=== PATIENT | female | born 1955 | race Caucasian/White ===

== ENCOUNTER → 2016-08-23 | Outpatient (CLI) | payer BC ==
[~2016-08-23] MED LIST: ACET-1325; ACYC400T PO; AMLO-110 PO; B-COTAB18 PO; BETH5TAB2 PO; CHOL1000 PO; CIPR0.3S OP; FLUR100T PO; LEVO75TA PO; MELA3TAB12 PO; MISC1TAB85 PO; MULT-506 PO; NORT50CA PO; NORT75CA2 PO; OMEG10007 PO; OMEP40CA PO; OMEP40CA41 PO; OYST500T47 PO; PANC1CAP PO; PRED1SUS3; PRED1SUS3 OPL; QUIN40TA18 PO; SENN-61 PO; TRAM-10 PO; TRAZ50TA35 PO; VENL75CA PO; VITACAP26 PO; ZOLP10TA6 PO
--- NOTE | 2016-08-25 08:21 | MAMMOGRAPHY REPORT ---
BILATERAL DIGITAL SCREENING MAMMOGRAM TOMOSYNTHESIS WITH CAD: 08/23/2016 CLINICAL HISTORY: Routine screening. Patient has no complaints. TECHNIQUE: Breast tomosynthesis in addition to standard 2D mammography was performed. Current study was also evaluated with a Computer Aided Detection (CAD) system. COMPARISON: Comparison is made to exams dated: 08/19/2015 mammogram, 08/14/2014 mammogram, 07/24/2013 jeanette mogram, 07/03/2012 mammogram, 06/29/2011 mammogram, and 06/25/2010 mammogram - [facility]. BREAST COMPOSITION: The tissue of both breasts is heterogeneously dense, which may obscure small mas ses. FINDINGS: No new suspicious mass, architectural distortion or cluster of microcalcifications is seen . There are stable postsurgical and post biopsy changes in the right breast. A gardenia-shaped metallic marker remains in place within the lower outer quadrant. There are benign-appearing rodlike calcific ations in the right breast. IMPRESSION: ACR BI-RADS CATEGORY 1: NEGATIVE There is no mammographic evidence of malignancy. A 1 year screening mammogram is recommended. The pa tient will receive written notification of the results. Approximately 10% of breast cancers are not detected with mammography. A negative mammographic report should not delay biopsy if a clinically suggestive mass is present. Sari Garcia M.D. ay/:08/24/2016 17:46:06 Zinc Skimmer: Yael VELASQUEZ)(Saray), [facility] letter sent: Normal 1/2 BI-RADS Code: ACR BI-RADS Category 1: Negative
== END | disposition home or self-care (01) ==
LOC: C.MAMM 16:01
PROVIDERS: ATTEND Family Medicine
DX: Z12.31 Encounter for screening mammogram for malignant neoplasm of breast (principal); Z85.3 Personal history of malignant neoplasm of breast; Z08 Encounter for follow-up examination after completed treatment for malignant neoplasm

== ENCOUNTER 2016-09-13 12:51 | Emergency (ER) | payer BC ==
[~2016-09-13] VITALS: Ht 154.9 cm; Wt 56.7 kg
[~2016-09-13 12:51] MED LIST changes: -BETH5TAB2 PO; -NORT50CA PO; -OMEP40CA41 PO; -TRAZ50TA35 PO
[2016-09-13 13:08] VITALS: TEMP 36.7; Ht 154.9 cm; Wt 56.7 kg
--- NOTE | 2016-09-13 14:29 | DIAGNOSTIC IMAGING REPORT ---
THORACIC SPINE CT CT DOSE: 739.58 mGycm HISTORY: Trauma. Pain. recent head injury thoracic back pain TECHNIQUE: Multiaxial CT images of the thoracic spine were performed and reformatted in the sagittal and coronal plane without the use of contrast. COMPARISON: None. FINDINGS: No fractures. No subluxation. Paraspinal soft tissues are unremarkable. Grade 1 anterolisthesis of C7 on T1 of the secondary to degenerative changes of posterior elements. Considerable degenerative intervertebral this change from T1 through T3 as well as a T8-T9. No evidence for an acute compression deformity. No evidence for bony compromise of the spinal canal or neural foramina.. IMPRESSION: Moderate degenerative change. No acute process. Electronically signed by: Santino Davis M.D. 09/13/2016 2:28 PM Dictated Date/Time: 09/13/2016 2:25 PM
--- NOTE | 2016-09-13 14:32 | DIAGNOSTIC IMAGING REPORT ---
CERVICAL SPINE CT CT DOSE: 381.16 mGycm HISTORY: Pain recent head injury; worsting neck pain and L arm weakness, Narath TECHNIQUE: Multiaxial CT images of the cervical spine were performed and reformatted in the sagittal and coronal plane without the use of contrast. COMPARISON: None. FINDINGS: Findings consistent with a fusion of the C5, C6, and C7 vertebral bodies. Grade 1/grade 2 anterolisthesis C7 on T1. Anterolisthesis is estimated approximately 3 mm. This is felt to be secondary to degenerative changes of posterior elements. No acute bony abnormality. No major compromise of the spinal canal. Moderate osteophytic narrowing of the neuroforamina bilaterally at C7-T1. IMPRESSION: Degenerative change. No acute bony abnormality. Moderate narrowing of the neuroforamina bilaterally at C7-T1 secondary to the patient's grade 1/grade 2 anterolisthesis of C7 on T1. Evidence for prior fusion of the C5, C6, and C7 vertebral bodies. Electronically signed by: Santino Davis M.D. 09/13/2016 2:31 PM Dictated Date/Time: 09/13/2016 2:28 PM
--- NOTE | 2016-09-13 14:42 | DIAGNOSTIC IMAGING REPORT ---
CT SCAN OF THE BRAIN WITHOUT IV CONTRAST CLINICAL HISTORY: Head injury. Lightheadedness. COMPARISON STUDY: No priors. TECHNIQUE: Unenhanced axial CT scan of the brain is performed from the vertex to the skull base. Automated dose control exposure was utilized. CT DOSE: 638.56 mGycm FINDINGS: Brain parenchyma: The brain parenchyma is normal in appearance. There is no hemorrhage, mass effect, or evidence of acute territorial ischemia by CT criteria. Bradley-white matter is preserved. No extra-axial fluid collection is seen. Ventricles, sulci, cisterns: Normal in configuration. Intracranial vasculature: There is mild atherosclerotic calcification of the cavernous carotid and vertebral arteries. Calvarium: There is no depressed calvarial fracture. Sinuses and mastoids: The visualized paranasal sinuses are clear. The mastoid air cells are well pneumatized. Orbits: The bony orbits are grossly intact. There are bilateral ocular lens implants. IMPRESSION: There is no hemorrhage, mass effect, or evidence of acute territorial ischemia by CT criteria. Electronically signed by: Wale Ramsey M.D. 09/13/2016 2:40 PM Dictated Date/Time: 09/13/2016 2:25 PM
[2016-09-13] MEDS ORDERED: NORT50CA PO (14:51)
[2016-09-13] MEDS ORDERED: OMEP40CA41 PO (14:53)
[2016-09-13] MEDS ORDERED: TRAZ50TA35 PO (14:58)
[2016-09-13] MEDS ORDERED: BETH5TAB2 PO (15:00)
[2016-09-13 15:58] VITALS: BP 132/85; PULSE 89; O2SAT 96
--- NOTE | 2016-09-14 10:22 | EMERGENCY ROOM VISIT NOTE ---
ED Visit Note First contact with patient: 13:23 Chief Complaint: I am dizzy, have blurry vision and is having neck and middle back pain. History of Present Illness: Ms. Samuel is a 61-year-old white female who ambulates into the ED accompanied by her with complaints of possible head injury and neck and thoracic back pain. Patient reports that she was on vacation in [place] on August 26. She reports she slipped and fell striking her left forehead on concrete. She reports she had a transient loss of consciousness lasting 3-5 seconds. She reports she did not seek medical attention at that time but 3 days later she was vacationing in [place] and was seen. She reports she had a CT of the head performed and it showed no acute intracranial abnormalities or skull fractures. Her facial diagnosis was a concussion. Subsequently she developed a hematoma contusion contusion on the forehead which is almost completely resolved. Patient reports 3 days ago she was walking in her kitchen and struck her left frontal area on a kitchen cabinet. She did not have a loss of consciousness distal time but had severe pain. Since that time she continues to have pain in the left frontal area but has developed an ongoing headache. She describes her headache as a global throbbing sensation. She rates her discomfort 3/10. Her pain is nonradiating. She has not identified any aggravating or alleviating factors related to the pain. She has not taken any medications for pain prior to arrival at the hospital. Associated with her pain she reports she is having a lightheadedness sensation and feels she needs to hold on the bell to maintain her balance while ambulating, she reports when she turns her head and changes her direction of vision she feels like her vision is delayed and eventually catches up to the position of her head, she is experiencing neck pain and thoracic back pain. Historically patient reports she has severe degenerative disc disease in her cervical spine and has had multiple surgeries. She places the majority of her discomfort over the C5 to T1 area. The pain is nonradiating. The pain worsens with all movement of the cervical spine. She does not rates this discomfort. Associated with this discomfort she reports she is having paresthesias in the left upper extremity. Lastly she also reports she is having mid thoracic pain in the area of T5 through T7. She reports this is mild but worsens with palpation. She denies any associated symptoms with this pain. Additionally she denies dizziness, hearing changes, difficulty speaking, difficulty swallowing, difficulty coordinating body movements, chest pain, shortness of breath, nausea, vomiting, lower extremity weakness/numbness/ tingling. Review of Systems: As noted above in history of present illness. All body systems were reviewed and found to be negative as noted above. Past Medical History: As noted above, hypertension, gastroparesis, osteoarthritis, gastric reflux, dyslipidemia, unspecified thyroid disease, breast cancer, depression and status post lumpectomy, carotid dissection, lumbar discectomy, unspecified foot surgery Current Medications: Medications Dose Route/Sig Max Daily Dose Days Date Category Bethanechol Chloride 5 Mg Tab 5 Mg PO TID 09/13/16 Reported Trazodone (Trazodone HCl) 50 Mg Tab 100 Mg PO HS PRN 09/13/16 Reported Prilosec (Omeprazole) 40 Mg Cap 40 Mg PO BID 09/13/16 Reported Pamelor (Nortriptyline HCl) 50 Mg Cap 50 Mg PO HS 09/13/16 Reported Glucosamine Chondroitin T (Quri Natural Products) 1 Tab Tab 1 Tab PO BID 09/12/15 Reported Calcium (Oyster Shell) 500 Mg Tab 500 Mg PO QPM 09/12/15 Reported Multivitamin (Multivitamins) Tab 1 Tab PO HS 09/12/15 Reported Melatonin (Melatonin-Pyridoxine) 1 Tab Tab 10 Mg PO HS 09/12/15 Reported Pancreatin Quadruple Stre (Pancreatin) 500 Mg Cap 500 Mg PO BID 09/12/15 Reported Ronald-3 (Fish Oil) 1 Ea Cap 1 Cap PO QAM 09/12/15 Reported Vitamin D3 (Cholecalciferol) 1,000 Unit Tab 1,000 Units PO QAM 09/12/15 Reported Vitamin C (Vitamins C & E) 1 Cap Cap 500 Mg PO QPM 09/12/15 Reported Vitamin B Complex (B-Complex Vitamins) 1 Tab Tab 1 Tab PO QAM 09/12/15 Reported Senokot (Senna) 8.6 Mg Tab 1-2 Tabs PO HS 09/12/15 Reported Ansaid (Flurbiprofen) 100 Mg Tab 100 Mg PO BID PRN 09/12/15 Reported Zolpidem Tartrate 10 Mg Tab 1 Tab PO HS PRN 30 09/12/15 Reported Ultram (Tramadol HCl) 50 Mg Tab 1-2 Tab PO DAILY PRN 30 09/12/15 Reported Acyclovir 400 Mg Tab 400 Mg PO BID 09/12/15 Reported Effexor Xr (Venlafaxine Hcl) 75 Mg Cap 300 Mg PO QAM 09/12/15 Reported Accupril (Quinapril HCl) 40 Mg Tab 40 Mg PO QAM 09/12/15 Reported Synthroid (Levothyroxine Sodium) 75 Mcg Tab 75 Mcg PO QAM 09/12/15 Reported Norvasc (Amlodipine Besylate) 5 Mg Tab 5 Mg PO QAM 09/12/15 Reported Allergies to Medications: Atenolol, codeine, penicillin and metoclopramide. Social History: Patient is not employed; she lives with her and feels safe in her home environment; she denies tobacco use. Physical Examination: Vital Signs: Date Time Temp Pulse Resp B/P (MAP) Pulse Ox O2 Delivery O2 Flow Rate FiO2 09/13/16 15:58 89 18 132/85 96 09/13/16 14:53 85 18 132/77 95 Room Air 09/13/16 13:08 36.7 93 18 150/86 100 Room Air GENERAL: 61-year-old female in mild distress due to pain, nontoxic-appearing, afebrile and hemodynamically stable. NEUROLOGICAL: Awake, alert and oriented to person, place and time. Answering questions appropriately and following commands. Normal gait. Good hand eye coordination. Romberg test negative. Pronator drift test negative. Cranial nerves II through XII grossly intact. Short-term and long-term recall. Normal rapid owning movements of the hands and fingers. Normal heel coordination test. Able to spell backwards. SKIN: Warm, dry and pink. Face: Contusion over the left frontal area and left zygomatic area. HEENT: Atraumatic and normocephalic. Skull: No bony deformity, depressions, tenderness or crepitus. No raccoon's eyes or vallejo signs. No drainage from the ears or the nostril; no hemotympanum. Face: Soft tissue injuries as noted above. There is no bony deformity, bony crepitus under these areas. PERRLA. EOMI without nystagmus. Funduscopic examination is unremarkable with a normal- appearing optic disc but no signs of increased intracranial pressure. Sclera white and conjunctiva pink. No malocclusion. Airway patent. No intraoral trauma. Speech normal. Trachea midline. No jugular venous distention. BACK: Moderate tenderness over the C5-C6 and T1 area predominantly on the left over the transverse processes. I do not appreciate any bony deformity or crepitus. She does have full range of motion of the cervical spine. Additionally there is tenderness over the T5-T6 area over the spinous processes. There is no bony deformity, crepitus, step-offs, swelling or ecchymosis. She does have full range of motion of the cervical spine. No tenderness throughout the lumbar spine. No tenderness to any of the paraspinous musculature structures of the spine. No CVA tenderness. THORAX: Lungs sounds are clear to auscultation and equal bilaterally with symmetrical chest wall. No wheezing, rales or rhonchi. No crepitus, tenderness , subcutaneous air or deformities noted. ABDOMEN: Flat, soft and nontender. Positive bowel sounds in all quadrants. No guarding, rigidity or organomegaly. UPPER EXTREMITIES: No gross bony deformity. No tenderness over the joints. Full range of motion of the shoulder, elbow, forearm or wrist. There is a slight decrease in strength with testing of the left elbow and forearm. Head Rose Grower strength is equal bilaterally. Finger strength is equal bilaterally. 2+ bicipital, tricipital and brachial radialis deep tendon reflexes intact and equal bilaterally. Throughout the hands and fingers the skin was warm and pink and capillary refill is brisk. She is able to distinguish light sensations through all dermatomes of the lower arm, hand and fingers. ED Course: Patient is assessed as noted above. Patient's medication list was reviewed. Cervical Spine CT: Was reviewed by myself and read by the radiologist showing degenerative changes but no acute bony abnormalities. Moderate narrowing of the neural foramina bilaterally at C7-T1 secondary to grade 1/grade 2 anterolisthesis of C7 on T1. Prior evidence of fusion of C5-C6 and C7 vertebral bodies. Head CT: Was reviewed by myself and read by the radiologist showing no hemorrhage, mass effect, acute ischemia or skull fractures. Thoracic Spine CT: Was reviewed by myself and read by the radiologist and showing moderate degenerative changes but no acute fractures or subluxations. Patient was offered pain medications and refused. Patient was educated about today's findings and instructed on her treatment plan ; she verbalizes understanding and agreement with this plan. Clinical Impression: Closed head injury. Possible concussive syndrome. Cervical and thoracic back pain. Status post fall. Decision-Making: Initially my differential diagnosis I considered skull fracture , delayed intracranial bleed, concussive syndrome, cervical spine fracture, subluxation or muscle spasm, thoracic spine fracture, subluxation or muscle spasm and other causes. Disposition: Patient discharged home in stable condition accompanied by her ; prior to departure she was reassessed and subjectively reported she was feeling slightly better and had a decrease in her headache. Plan: Patient was encouraged to continue her current medications as prescribed. Patient was encouraged to alternate ibuprofen or acetaminophen every 3 hours as needed for pain. Patient was educated on Walker use and encouraged to use this for stability until return of normal stability. Patient was given the contact information for the local concussion clinic for follow-up care and treatment. Patient was encouraged to follow-up with her back specialist concerning her cervical and thoracic back pain. Patient was encouraged return the ED for worsening instability, headaches, vomiting, worsening paresthesias of her left upper extremity or any new/ concerning symptoms.
== END 2016-09-13 16:00 | disposition home or self-care (01) ==
LOC: C.EDB 12:53 → C.EDD 16:00
DX: S09.90XA Unspecified injury of head, initial encounter (principal); W18.30XA Fall on same level, unspecified, initial encounter; M54.2 Cervicalgia; M54.6 Pain in thoracic spine; M50.30 Other cervical disc degeneration, unspecified cervical region; I10 Essential (primary) hypertension; K31.84 Gastroparesis; M19.90 Unspecified osteoarthritis, unspecified site; K21.9 Gastro-esophageal reflux disease without esophagitis; E78.5 Hyperlipidemia, unspecified; F32.9 Major depressive disorder, single episode, unspecified; Z85.3 Personal history of malignant neoplasm of breast

== ENCOUNTER → 2017-06-10 | Outpatient (CLI) | payer OTHER ==
[~2017-06-10] MED LIST changes: -ACET-1325; +BETH5TAB2 PO; -CIPR0.3S OP; +NORT50CA PO; -NORT75CA2 PO; -OMEP40CA PO; +OMEP40CA41 PO; +OPTIRAY 320 IV PRN; -PRED1SUS3; -PRED1SUS3 OPL; +TRAZ50TA35 PO
--- NOTE | 2017-06-10 17:27 | DIAGNOSTIC IMAGING REPORT ---
ABD/PELVIS IV AND ORAL CONT CLINICAL HISTORY: 62 years-old Female presenting with ABD Cramping, bloody STOOL. TECHNIQUE: Multidetector CT of the abdomen and pelvis was performed after the administration of oral and intravenous contrast. IV contrast: 93 mL of Optiray 320. A dose lowering technique was used consistent with the principles of ALARA (as low as reasonably achievable). COMPARISON: 09/27/2007. CT DOSE (mGy.cm): The estimated cumulative dose is 237.82 mGy.cm. FINDINGS: Fitting Supervisor topogram: Unremarkable. Lung bases: Minimal basilar opacities, likely atelectasis. Normal heart size. No pericardial or pleural effusion. Liver: Normal morphology. No liver lesion. Patent hepatic vasculature. Biliary: No intrahepatic or extrahepatic biliary ductal dilatation. Normal gallbladder. Pancreas: Normal. Spleen: Normal. Adrenal glands: Normal. Kidneys and ureters: Few tiny hypodensities in the right kidney, indeterminate but likely cysts. No nephrolithiasis. No hydronephrosis. Bladder: Normal. Pelvic organs: Uterus and ovaries normal. Bowel: Moderate stool burden in the colon to the level of the descending colon. No bowel obstruction. Apparent wall thickening of the stomach likely due to underdistention. The appendix is not definitively visualized. However, no inflammatory changes in the region of the cecum, which is superiorly directed. Peritoneal cavity: No free fluid or intraperitoneal gas. Lymph nodes: No enlarged lymph nodes in the abdomen or pelvis. Vasculature: Atherosclerosis of the normal caliber abdominal aorta. IVC patent. Abdominal wall: Normal. Musculoskeletal: Degenerative changes of the spine. Old posterior right rib fracture. IMPRESSION: 1. Moderate stool burden in the colon consistent with constipation. No bowel obstruction. 2. No other evidence of acute intra-abdominal pathology. No CT evidence of gastrointestinal hemorrhage, though this diagnosis is limited by the presence of positive oral contrast. Electronically signed by: Renan Cassidy M.D. 06/10/2017 5:26 PM Dictated Date/Time: 06/10/2017 5:19 PM
== END | disposition home or self-care (01) ==
LOC: C.CTS 14:54
PROVIDERS: ATTEND Nurse Practitioner
DX: R10.84 Generalized abdominal pain (principal); K92.1 Melena

== ENCOUNTER 2021-10-13 15:15 | Inpatient (IN) ==
--- NOTE | 2021-10-13 15:37 | ED Triage Note ---
Date of Service October 13, 2021 History of Present Illness This patient was briefly evaluated while in triage. An abbreviated physical exam was performed. This patient is a 66-year-old that presents to the emergency department over concerns for "Sepsis". She notes nausea, L abd pain, Fever, muscle weakness, pain, lack of mental acuity. This started on this past tuesday evening. Has rectal pouch. Physical Exam GENERAL: 66 year old female. In no acute distress. SKIN: No lesions or rashes. HEART: Regular rate and rhythm. LUNGS: Clear to auscultation. ABDOMEN: Bowel sounds normoactive. No guarding or rigidity. No tenderness of palpation. NEURO: Alert and oriented. No deficits. MUSCULOSKELETAL: No deformities to inspection of the extremities. PSYCH: Patient is pleasant and answers all questions appropriately. Initial orders for labs and / or imaging were placed and patient was placed in the waiting area until a bed is available. Please see further documentation for the full ED course.
[2021-10-13 16:44] LABS: Albumin Globulin Ratio 1.5 (0.9-2); Albumin Level 3.9 gm/dl (3.4-5.0); BUN Creatinine Ratio 10.6 (10-20); Bilirubin,Total 0.3 mg/dl (0.2-1.0); Calcium 9.1 mg/dl (8.5-10.1); Est GFR (African American) 20.7 ml/min; Est GFR (Non-African American) 17.9 ml/min; Globulin 2.6 gm/dl (2.5-4.0); Magnesium 2.5 mg/dl (1.7-2.4); Potassium 3.8 mmol/L (3.5-5.1); Total Protein 6.5 gm/dl (6.0-8.3)
--- NOTE | 2021-10-13 16:47 | XRay Report ---
SINGLE VIEW CHEST CLINICAL HISTORY: Infection FINDINGS: An AP, portable, upright chest radiograph is compared to study dated 02/26/2019. The cardio mediastinal silhouette is unremarkable. The lungs and pleural spaces are clear. No pneumothorax is se en. The skeletal structures are osteopenic. There are healed right-sided rib fractures. Fusion hardwa re is noted the cervicothoracic junction. IMPRESSION: No active disease in the chest. ACT 112: Negative or not required by law. Electronically signed by: Wale Ramsey M.D. 10/13/2021 4:46 PM
[2021-10-13] MEDS ORDERED: KETOROLAC TROMETHAMINE 15 MG/ML VIAL IV ONE (16:51)
[2021-10-13] MEDS ORDERED: MoRPHine SULFATE 2 MG/ML CARP IV STA (16:51)
[2021-10-13] MEDS ORDERED: SODIUM CHLORIDE 0.9% 1000ML 1,000 ML IV ONE (16:51)
[2021-10-13] MEDS ORDERED: ONDANSETRON INJ 2 MG/ML 2 ML VIAL IV STA (16:51)
[2021-10-13] MEDS ORDERED: CEFEPIME 2,000 MG/20 ML VIAL IV STA (16:54)
[2021-10-13 17:02] LABS: Hematocrit (blood only) 39.7 % (34.1-44.9); Hemoglobin 13.6 g/dl (12.0-16.0); Mean Corpuscular Hemoglobin 31.1 pg (25.0-34.0); Mean Corpuscular Hgb Conc 34.3 g/dL (32.0-36.0); Mean Corpuscular Volume 90.6 fL (80.0-100.0); Mean Platelet Volume 10.8 fL (9.4-12.3); Platelet Count 137 K/uL (130-400); RDW Standard Deviation 39.9 fL (36.4-46.3); Red Blood Count 4.38 M/uL (3.93-5.22); White Blood Count 3.98 K/ul (4.8-10.8)
[2021-10-13 17:03] LABS: Basophils # (auto) 0.04 K/uL (0-0.2); Immature Granulocytes # (auto) 0.01 K/uL (0.00-0.02); Immature Granulocytes % (auto) 0.3 %; Lymphocytes # (auto) 0.34 K/uL (1.2-3.4); Lymphocytes % (auto) 8.5 %; Monocytes # (auto) 0.22 K/uL (0.24-0.82); Monocytes % (auto) 5.5 %; Neutrophils # (auto) 3.37 K/uL (1.4-6.5); Neutrophils % (auto) 84.7 %; RBC Morphology Unremarkable
--- NOTE | 2021-10-13 17:03 | Emergency Department Note ---
Impression & Plan Hypotension, MARLA (acute kidney injury), Flu-like symptoms, Acute hyponatremia ED Provider Note NAME: RON CANADA AGE: 66 SEX: F : 1955 ARRIVES VIA: Walk-In INFORMANT: [Patient] ED PROVIDER(S): [Wale Odonnell MD] CHIEF COMPLAINT: Fever, confusion HISTORY OF PRESENT ILLNESS: The patient is a 66-year-old female who presents to the ED with 3 days of fatigue, fever, body aches, nausea, weakness and some confusion/fogginess when thinking. The patient states that she has had some left-sided abdominal pain that has been about a 5 on a scale of 1-10. There has been no sore throat or cough. She tested twice negative for COVID-19. The patient spoke with her doctors office, she was referred for the possibility of sepsis. REVIEW OF SYSTEMS: See HPI for pertinent positives and negatives. A total of ten systems were reviewed and were otherwise negative. PMHx/PSHx: See Below SOCIAL HISTORY: See Below. PHYSICAL EXAM: GENERAL: Patient is in no acute distress. HEENT: No acute trauma, normocephalic atraumatic, mucous membranes moist, no nasal congestion, no scleral icterus. NECK: No stridor, no adenopathy, no meningismus, trachea is midline. LUNGS: Clear to auscultation bilaterally, no wheeze, no rhonchi, breath sounds equal. HEART: Without murmurs gallops or rubs, regular rate and rhythm. ABDOMEN: Soft, moderately tender in the right upper quadrant, no peritonitis. Bowel sounds are hyperactive. EXTREMITIES: No cyanosis or edema, full range of motion of all the joints without pain or difficulty, no signs for acute trauma. NEUROLOGIC: Oriented x 3, no acute motor or sensory deficits, no focal weakness. SKIN: No rash, no jaundice, no diaphoresis. DIFFERENTIAL DIAGNOSIS: Sepsis, UTI, dehydration, diverticulitis or colitis, COVID-19, pneumonia, metabolic abnormality, electrolyte abnormalities, cardiac sources, cellulitis, bacteremia, intracerebral event, toxicologic etiology, neurologic event, as well as other pathologies. EMERGENCY DEPARTMENT COURSE/PROCEDURES: Critical Care Note: I have personally spent 51 minutes of critical care time in the direct management of this patient. This includes bedside care, interpretation of diagnostic studies, and testing, discussion with consultants, patient, and family members, and other required patient management activities. This 51 minutes is in excess of all separately billable procedures. MEDICAL DECISION MAKING: There is no leukocytosis, in fact, the white count is somewhat low. There is no anemia. There is a normal platelet count. Sodium was low at 128. There was some acute kidney injury with a creatinine of 2.64. Lactic acid level was elevated consistent with dehydration and/or sepsis. There were some subtle liver enzyme elevations, the bilirubin though was normal. Procalcitonin level was elevated consistent with potential bacterial infection. Urinalysis showed some dehydration, there was no obvious infection. Stool bio fire testing was completely negative. Anaplasmosis and Babesia smears were negative. Lyme disease testing was negative. COVID test returned negative. Chest x-ray did not show pneumonia or CHF. Abdominal and pelvis CT showed some potential gastroenteritis, no diverticulitis, no free air. On exam, the patient was somewhat hypotensive. She was not febrile. Patient received IV saline, 2 L. She was given IV Zofran for nausea, she received IV Toradol for pain. She was given IV cefepime as empiric antibiotic coverage. The patient's blood pressure has improved. She is currently resting comfortably. I do think she requires a hospital stay for further work-up. She presents with infectious symptomatology, currently, no source for infection has been identified. I spoke with the patient and case management. The on-call hospitalist was consulted. Past Med/Surg History Medical History Carpal tunnel syndrome Degenerative disc disease Depression Eustachian tube dysfunction Gastroparesis GERD (gastroesophageal reflux disease) HX: breast cancer RIGHT > 2007 > NO CHEMO Hypertension Hypothyroidism Migraine HX Peptic ulcer disease HX Weight loss OVER THE LAST FEW YRS - [facility]LO[facility]) NO FINDINGS Surgical History History of bilateral tubal ligation History of bunionectomy right History of colonoscopy History of discectomy LUMBAR FUSION History of esophagogastroduodenoscopy (EGD) History of neck surgery X 2 History of tonsillectomy Hx of foot surgery LEFT TO TOE Hx of lumpectomy R BREAST Hx of neck surgery CAN'T LEAN HEAD BACK VERY FAR. > (HASNT HAD TROUBLE WITH ANESTHESIA THOUGH) Family History Grandmother (Maternal) Diabetes Father Cancer Family hx of colon cancer Social History Smoking Status: Never smoker Cigarettes Per Day: 10 YR AGO; Second Hand Exposure: Yes ( A CHILD); Hx Alcohol Use: Yes Alcohol type: wine Hx Substance Use: Yes Substance Use Type Other:: INH HS Preferred Language: Japanese Communication Ability: Effective Heater Room Helper Required: No Beliefs That Will Affect Care: None Current Living Situation: Spouse current occupational status: retired Feels Safe at Home: Yes Assistive Devices: Contacts Allergies Allergies Allergy/AdvReac Type Severity Reaction Status Date / Time atenolol Allergy Intermediate RESTLESS Verified 10/13/21 18:09 nickel Allergy Intermediate MUST WEAR Verified 10/13/21 18:09 GOLD OR SILVER ONLY-RASH Penicillins Allergy Unknown A Verified 10/13/21 18:09 CHILD-UNKNOWN codeine AdvReac Intermediate "DEPRESSED Verified 10/13/21 18:09 CENTRAL NERVOUS SYSTEM" metoclopramide AdvReac Intermediate AGITATED Verified 10/13/21 18:09 Home Meds Home Medications Medication Instructions Recorded Confirmed Medical Marijuana 1 dose inhalation HS 03/09/19 10/13/21 acyclovir 400 mg tablet 400 mg PO BID 03/09/19 10/13/21 amlodipine 10 mg tablet 10 mg PO PM 03/09/19 10/13/21 ascorbic acid (vitamin C) 500 mg 500 mg PO HS 03/09/19 10/13/21 tablet (Vitamin C) biotin 10,000 mcg capsule 10,000 mcg PO QAM 03/09/19 10/13/21 cholecalciferol (vitamin D3) 25 1,000 unit PO QAM 03/09/19 10/13/21 mcg (1,000 unit) chewable tablet (Vitamin D3) flurbiprofen 100 mg tablet 100 mg PO BID 03/09/19 10/13/21 glucosamine sulf dipot 1 cap PO BID 03/09/19 10/13/21 chlr,msm,chond 550 mg-C 30 mg-maciel 1 mg capsule (Glucosamine Chondroitin) levothyroxine 75 mcg tablet 75 mcg PO [id number] 03/09/19 10/13/21 (Synthroid) lisinopril 40 mg tablet 40 mg PO QPM 03/09/19 10/13/21 magnesium oxide 400 mg PO QAM 03/09/19 10/13/21 melatonin 5 mg tablet 5 mg PO HS 03/09/19 10/13/21 multivitamin 1 tab PO PM 03/09/19 10/13/21 nortriptyline 25 mg capsule 25 mg PO PM 03/09/19 10/13/21 potassium chloride 10 mEq 10 meq PO HS 03/09/19 10/13/21 capsule,extended release trazodone 100 mg tablet 100 mg PO HS 03/09/19 10/13/21 venlafaxine 75 mg tablet 300 mg PO QAM 03/09/19 09/02/21 vitamin B complex-folic acid 0.4 1 tab PO QAM 03/09/19 09/02/21 mg tablet (Super B Maxi Complex) Cranberry Extract Otc 2 tab PO BID 08/28/21 10/13/21 ferrous sulfate 325 mg (65 mg 325 mg PO QAM 08/28/21 10/13/21 iron) tablet linaclotide 290 mcg capsule 290 mcg PO QAM 08/28/21 10/13/21 (Linzess) lamotrigine 25 mg tablet 25 mg PO DAILY 10/13/21 10/13/21 Results & Data (ED) Vital Signs Vital Signs - 24 hr 10/13/21 15:34 10/13/21 16:33 10/13/21 17:00 Temperature 36.6 C Temperature Source Temporal Artery Scan Pulse Rate 100 H 68 Pulse Rate [Apical] 74 Pulse Rate from SpO2 Sensor Respiratory Rate 18 19 15 Respiratory Effort / Characteristics Non-Labored Spontaneous Non-Labored Spontaneous Respiratory Depth Normal Normal Blood Pressure 85/59 L 80/55 L Blood Pressure [Right Arm] 106/57 L Blood Pressure Mean 67 63 Blood Pressure Mean [Right Arm] 73 Blood Pressure Position [Right Arm] Pulse Oximetry 93 96 Oxygen Delivery Method Room Air Room Air Sepsis Recent Fever Within 48 Hours Yes Sepsis New/Unexplained Change in Mental Status No Sepsis Action Taken by Nursing No Action Required 10/13/21 17:10 10/13/21 17:20 10/13/21 17:30 Temperature Temperature Source Pulse Rate 63 71 73 Pulse Rate [Apical] Pulse Rate from SpO2 Sensor 65 69 70 Respiratory Rate 14 14 21 Respiratory Effort / Characteristics Respiratory Depth Blood Pressure 86/57 L 84/60 L 84/52 L Blood Pressure [Right Arm] Blood Pressure Mean 66 68 62 Blood Pressure Mean [Right Arm] Blood Pressure Position [Right Arm] Pulse Oximetry 97 96 79 L Oxygen Delivery Method Sepsis Recent Fever Within 48 Hours Sepsis New/Unexplained Change in Mental Status Sepsis Action Taken by Nursing 10/13/21 18:00 10/13/21 18:54 Temperature 37.4 C Temperature Source Temporal Artery Scan Pulse Rate 71 Pulse Rate [Apical] 76 Pulse Rate from SpO2 Sensor 71 Respiratory Rate 20 20 Respiratory Effort / Characteristics Respiratory Depth Blood Pressure 93/56 L Blood Pressure [Right Arm] 89/60 L Blood Pressure Mean 68 Blood Pressure Mean [Right Arm] 69 Blood Pressure Position [Right Arm] Sitting Pulse Oximetry 99 99 Oxygen Delivery Method Room Air Sepsis Recent Fever Within 48 Hours Sepsis New/Unexplained Change in Mental Status Sepsis Action Taken by Longterm Medications Current Medication List: was personally reviewed by me Laboratory Data Attestation: I reviewed the patient's lab results. Result diagrams: 10/13/21 16:05 10/13/21 16:05 Lab Results 10/13/21 10/13/21 10/13/21 Range/Units 16:05 16:05 16:05 WBC 3.98 L (4.8-10.8) K/ul RBC 4.38 (3.93-5.22) M/uL Hgb 13.6 (12.0-16.0) g/dl Hct 39.7 (34.1-44.9) % MCV 90.6 (80.0-100.0) fL MCH 31.1 (25.0-34.0) pg MCHC 34.3 (32.0-36.0) g/dL RDW Std Deviation 39.9 (36.4-46.3) fL RDW Coeff of Kush 12.0 (11.5-14.5) % Plt Count 137 (130-400) K/uL MPV 10.8 (9.4-12.3) fL Immature Gran % (Auto) 0.3 % Neut % (Auto) 84.7 % Lymph % (Auto) 8.5 % [place] % (Auto) 5.5 % Eos % (Auto) 0.0 % Baso % (Auto) 1.0 % Neut # (Auto) 3.37 (1.4-6.5) K/uL Lymph # (Auto) 0.34 L (1.2-3.4) K/uL [place] # (Auto) 0.22 L (0.24-0.82) K/uL Eos # (Auto) 0.00 (0-0.50) K/uL Baso # (Auto) 0.04 (0-0.2) K/uL Immature Gran # (Auto) 0.01 (0.00-0.02) K/uL RBC Morphology Unremarkable Sodium 128 L (136-145) mmol/L Potassium 3.8 (3.5-5.1) mmol/L Chloride 94 L (98-107) mmol/L Carbon Dioxide 25 (21-32) mmol/L Anion Gap 9 (3-11) BUN 28 H (6-23) mg/dl Creatinine 2.64 H (0.6-1.2) mg/dl Est Cr Clr Drug Dosing 15.0 ml/min Est GFR ( Amer) 20.7 ml/min Est GFR (Non-Af Amer) 17.9 ml/min BUN/Creatinine Ratio 10.6 (10-20) Glucose 136 H (70-99(Fasting)) mg/dl Osmolality (280-300) mOsm/kg Lactate 2.2 H* (0.4-2.0) mmol/L Calcium 9.1 (8.5-10.1) mg/dl Magnesium 2.5 H (1.7-2.4) mg/dl Total Bilirubin 0.3 (0.2-1.0) mg/dl AST 66 H (13-39) U/L ALT 54 H (7-52) U/L Alkaline Phosphatase 52 (34-104) U/L Total Protein 6.5 (6.0-8.3) gm/dl Albumin 3.9 (3.4-5.0) gm/dl Globulin 2.6 (2.5-4.0) gm/dl Albumin/Globulin Ratio 1.5 (0.9-2) Procalcitonin (0-0.5) ng/ml Urine Color Urine Appearance (Clear) Urine pH (4.5-7.5) Ur Specific What[place] (1.000-1.030) Urine Protein (Negative) Urine Glucose (UA) (Negative) Urine Ketones (Negative) Urine Blood (Negative) Urine Nitrite (Negative) Urine Bilirubin (Negative) Urine Urobilinogen (Negative) Ur Leukocyte Esterase (Negative) Urine WBC (Auto) (0-5) /hpf Urine RBC (Auto) (0-4) /hpf U Hyaline Cast (Auto) (0-5) /lpf U Epithel Cells (Auto) (0-5) /lpf Urine Bacteria (Auto) (Negative) Ur Renal Epithelial Cell Calcium Oxalate Crystal (None Prsent) Urine Mucus (None Prsent) Urine Osmolality (500-800) mOsm/kg Ur Random Sodium mmol/L Anaplasma Smear Babesia Smear Lyme Disease IgG Ab (Negative) Lyme Disease IgM Ab (Negative) SARS-CoV-2 (PCR) (Negative) 10/13/21 10/13/21 10/13/21 Range/Units 16:05 16:05 16:05 WBC (4.8-10.8) K/ul RBC (3.93-5.22) M/uL Hgb (12.0-16.0) g/dl Hct (34.1-44.9) % MCV (80.0-100.0) fL MCH (25.0-34.0) pg MCHC (32.0-36.0) g/dL RDW Std Deviation (36.4-46.3) fL RDW Coeff of Kush (11.5-14.5) % Plt Count (130-400) K/uL MPV (9.4-12.3) fL Immature Gran % (Auto) % Neut % (Auto) % Lymph % (Auto) % [place] % (Auto) % Eos % (Auto) % Baso % (Auto) % Neut # (Auto) (1.4-6.5) K/uL Lymph # (Auto) (1.2-3.4) K/uL [place] # (Auto) (0.24-0.82) K/uL Eos # (Auto) (0-0.50) K/uL Baso # (Auto) (0-0.2) K/uL Immature Gran # (Auto) (0.00-0.02) K/uL RBC Morphology Sodium (136-145) mmol/L Potassium (3.5-5.1) mmol/L Chloride (98-107) mmol/L Carbon Dioxide (21-32) mmol/L Anion Gap (3-11) BUN (6-23) mg/dl Creatinine (0.6-1.2) mg/dl Est Cr Clr Drug Dosing ml/min Est GFR ( Amer) ml/min Est GFR (Non-Af Amer) ml/min BUN/Creatinine Ratio (10-20) Glucose (70-99(Fasting)) mg/dl Osmolality (280-300) mOsm/kg Lactate (0.4-2.0) mmol/L Calcium (8.5-10.1) mg/dl Magnesium (1.7-2.4) mg/dl Total Bilirubin (0.2-1.0) mg/dl AST (13-39) U/L ALT (7-52) U/L Alkaline Phosphatase (34-104) U/L Total Protein (6.0-8.3) gm/dl Albumin (3.4-5.0) gm/dl Globulin (2.5-4.0) gm/dl Albumin/Globulin Ratio (0.9-2) Procalcitonin 7.46 H (0-0.5) ng/ml Urine Color Urine Appearance (Clear) Urine pH (4.5-7.5) Ur Specific What[place] (1.000-1.030) Urine Protein (Negative) Urine Glucose (UA) (Negative) Urine Ketones (Negative) Urine Blood (Negative) Urine Nitrite (Negative) Urine Bilirubin (Negative) Urine Urobilinogen (Negative) Ur Leukocyte Esterase (Negative) Urine WBC (Auto) (0-5) /hpf Urine RBC (Auto) (0-4) /hpf U Hyaline Cast (Auto) (0-5) /lpf U Epithel Cells (Auto) (0-5) /lpf Urine Bacteria (Auto) (Negative) Ur Renal Epithelial Cell Calcium Oxalate Crystal (None Prsent) Urine Mucus (None Prsent) Urine Osmolality (500-800) mOsm/kg Ur Random Sodium mmol/L Anaplasma Smear Babesia Smear Lyme Disease IgG Ab Negative (Negative) Lyme Disease IgM Ab Negative (Negative) SARS-CoV-2 (PCR) NEGATIVE (Negative) 10/13/21 10/13/21 10/13/21 Range/Units 16:05 16:05 17:52 WBC (4.8-10.8) K/ul RBC (3.93-5.22) M/uL Hgb (12.0-16.0) g/dl Hct (34.1-44.9) % MCV (80.0-100.0) fL MCH (25.0-34.0) pg MCHC (32.0-36.0) g/dL RDW Std Deviation (36.4-46.3) fL RDW Coeff of Kush (11.5-14.5) % Plt Count (130-400) K/uL MPV (9.4-12.3) fL Immature Gran % (Auto) % Neut % (Auto) % Lymph % (Auto) % [place] % (Auto) % Eos % (Auto) % Baso % (Auto) % Neut # (Auto) (1.4-6.5) K/uL Lymph # (Auto) (1.2-3.4) K/uL [place] # (Auto) (0.24-0.82) K/uL Eos # (Auto) (0-0.50) K/uL Baso # (Auto) (0-0.2) K/uL Immature Gran # (Auto) (0.00-0.02) K/uL RBC Morphology Sodium (136-145) mmol/L Potassium (3.5-5.1) mmol/L Chloride (98-107) mmol/L Carbon Dioxide (21-32) mmol/L Anion Gap (3-11) BUN (6-23) mg/dl Creatinine (0.6-1.2) mg/dl Est Cr Clr Drug Dosing ml/min Est GFR ( Amer) ml/min Est GFR (Non-Af Amer) ml/min BUN/Creatinine Ratio (10-20) Glucose (70-99(Fasting)) mg/dl Osmolality 277 L (280-300) mOsm/kg Lactate (0.4-2.0) mmol/L Calcium (8.5-10.1) mg/dl Magnesium (1.7-2.4) mg/dl Total Bilirubin (0.2-1.0) mg/dl AST (13-39) U/L ALT (7-52) U/L Alkaline Phosphatase (34-104) U/L Total Protein (6.0-8.3) gm/dl Albumin (3.4-5.0) gm/dl Globulin (2.5-4.0) gm/dl Albumin/Globulin Ratio (0.9-2) Procalcitonin (0-0.5) ng/ml Urine Color Dark Yellow Urine Appearance Cloudy A (Clear) Urine pH 5.0 (4.5-7.5) Ur Specific Whately 1.021 (1.000-1.030) Urine Protein 2+ H (Negative) Urine Glucose (UA) Negative (Negative) Urine Ketones Trace H (Negative) Urine Blood Negative (Negative) Urine Nitrite Negative (Negative) Urine Bilirubin Negative (Negative) Urine Urobilinogen Negative (Negative) Ur Leukocyte Esterase Negative (Negative) Urine WBC (Auto) 5-10 H (0-5) /hpf Urine RBC (Auto) 10-30 H (0-4) /hpf U Hyaline Cast (Auto) >30 H (0-5) /lpf U Epithel Cells (Auto) >30 H (0-5) /lpf Urine Bacteria (Auto) Negative (Negative) Ur Renal Epithelial Cell Not Reportable Calcium Oxalate Crystal Present A (None Prsent) Urine Mucus Present A (None Prsent) Urine Osmolality (500-800) mOsm/kg Ur Random Sodium mmol/L Anaplasma Smear See Comment Babesia Smear See Comment Lyme Disease IgG Ab (Negative) Lyme Disease IgM Ab (Negative) SARS-CoV-2 (PCR) (Negative) 10/13/21 10/13/21 10/13/21 Range/Units 17:52 17:52 19:06 WBC (4.8-10.8) K/ul RBC (3.93-5.22) M/uL Hgb (12.0-16.0) g/dl Hct (34.1-44.9) % MCV (80.0-100.0) fL MCH (25.0-34.0) pg MCHC (32.0-36.0) g/dL RDW Std Deviation (36.4-46.3) fL RDW Coeff of Kush (11.5-14.5) % Plt Count (130-400) K/uL MPV (9.4-12.3) fL Immature Gran % (Auto) % Neut % (Auto) % Lymph % (Auto) % [place] % (Auto) % Eos % (Auto) % Baso % (Auto) % Neut # (Auto) (1.4-6.5) K/uL Lymph # (Auto) (1.2-3.4) K/uL [place] # (Auto) (0.24-0.82) K/uL Eos # (Auto) (0-0.50) K/uL Baso # (Auto) (0-0.2) K/uL Immature Gran # (Auto) (0.00-0.02) K/uL RBC Morphology Sodium (136-145) mmol/L Potassium (3.5-5.1) mmol/L Chloride (98-107) mmol/L Carbon Dioxide (21-32) mmol/L Anion Gap (3-11) BUN (6-23) mg/dl Creatinine (0.6-1.2) mg/dl Est Cr Clr Drug Dosing ml/min Est GFR ( Amer) ml/min Est GFR (Non-Af Amer) ml/min BUN/Creatinine Ratio (10-20) Glucose (70-99(Fasting)) mg/dl Osmolality (280-300) mOsm/kg Lactate 0.5 (0.4-2.0) mmol/L Calcium (8.5-10.1) mg/dl Magnesium (1.7-2.4) mg/dl Total Bilirubin (0.2-1.0) mg/dl AST (13-39) U/L ALT (7-52) U/L Alkaline Phosphatase (34-104) U/L Total Protein (6.0-8.3) gm/dl Albumin (3.4-5.0) gm/dl Globulin (2.5-4.0) gm/dl Albumin/Globulin Ratio (0.9-2) Procalcitonin (0-0.5) ng/ml Urine Color Urine Appearance (Clear) Urine pH (4.5-7.5) Ur Specific [place] (1.000-1.030) Urine Protein (Negative) Urine Glucose (UA) (Negative) Urine Ketones (Negative) Urine Blood (Negative) Urine Nitrite (Negative) Urine Bilirubin (Negative) Urine Urobilinogen (Negative) Ur Leukocyte Esterase (Negative) Urine WBC (Auto) (0-5) /hpf Urine RBC (Auto) (0-4) /hpf U Hyaline Cast (Auto) (0-5) /lpf U Epithel Cells (Auto) (0-5) /lpf Urine Bacteria (Auto) (Negative) Ur Renal Epithelial Cell Calcium Oxalate Crystal (None Prsent) Urine Mucus (None Prsent) Urine Osmolality 290 L (500-800) mOsm/kg Ur Random Sodium 16 mmol/L Anaplasma Smear Babesia Smear Lyme Disease IgG Ab (Negative) Lyme Disease IgM Ab (Negative) SARS-CoV-2 (PCR) (Negative) Administered Medications Sodium Chloride (Nss 1000ml) 1,000 mls @ 80 mls/hr IV .[id number] ESTELA Stop: 10/14/21 09:44 Last Admin: 10/13/21 21:35 Dose: 80 mls/hr Documented By: AMRITA Morphine Sulfate (Morphine Sulfate 2 Mg/Ml Carp) 2 mg IV Q3H PRN PRN Reason: Pain (1,2,3,4,5) & Pre PT Stop: 10/27/21 22:41 Last Admin: 10/13/21 23:12 Dose: 2 mg Documented By: AMRITA Discontinued Medications Sodium Chloride (Nss 1000ml) 1,000 mls @ 999 mls/hr IV .[id number] ONE Stop: 10/13/21 17:51 Last Infusion: 10/13/21 18:13 Dose: 0 mls/hr Documented By: Admin: 10/13/21 17:08 Dose: 999 mls/hr Documented By: SALVADOR Cefepime HCl (Maxipime) 2,000 mg in 20 mls @ 5 mls/min IV NOW STA; Protocol Stop: 10/13/21 16:57 Last Admin: 10/13/21 17:19 Dose: 5 mls/min Documented By: SALVADOR Sodium Chloride (Nss 1000ml) 500 mls @ 999 mls/hr IV .Q31M ONE Stop: 10/13/21 18:14 Last Infusion: 10/13/21 19:00 Dose: 0 mls/hr Documented By: Admin: 10/13/21 18:28 Dose: 999 mls/hr Documented By: SALVADOR Lactated Ringer's (Lr) 1,000 mls @ 125 mls/hr IV .Q8H ESTELA Stop: 10/14/21 04:14 Last Admin: 10/13/21 21:24 Dose: Not Given Documented By: AMRITA Sodium Chloride (Nss 1000ml) 500 mls @ 999 mls/hr IV .Q31M ONE Stop: 10/13/21 22:54 Last Admin: 10/13/21 22:40 Dose: 999 mls/hr Documented By: AMRITA Ketorolac Tromethamine (Ketorolac Tromethamine 15 Mg/Ml Vial) 10 mg IV NOW ONE Stop: 10/13/21 16:52 Last Admin: 10/13/21 17:19 Dose: 10 mg Documented By: SALVADOR Morphine Sulfate (Morphine Sulfate 2 Mg/Ml Carp) 2 mg IV NOW STA Stop: 10/13/21 16:52 Last Admin: 10/13/21 21:15 Dose: Not Given Documented By: AMRITA Ondansetron HCl (Ondansetron Inj 2 Mg/Ml 2 Ml Vial) 4 mg IV NOW STA Stop: 10/13/21 16:52 Last Admin: 10/13/21 17:19 Dose: 4 mg Documented By: SALVADOR Imaging Data Radiologist's Impression: Chest X-Ray 10/13/21 16:34 SINGLE VIEW CHEST CLINICAL HISTORY: Infection FINDINGS: An AP, portable, upright chest radiograph is compared to study dated 02/26/2019. The cardiomediastinal silhouette is unremarkable. The lungs and pleural spaces are clear. No pneumothorax is seen. The skeletal structures are osteopenic. There are healed right-sided rib fractures. Fusion hardware is noted the cervicothoracic junction. IMPRESSION: No active disease in the chest. ACT 112: Negative or not required by law. Electronically signed by: Wale Ramsey M.D. 10/13/2021 4:46 PM Abdomen/Pelvis CT 10/13/21 16:53 CT SCAN OF THE ABDOMEN AND PELVIS WITHOUT IV CONTRAST CLINICAL HISTORY: General and abdominal pain. Fever. COMPARISON STUDY: Abdominal CT dated 01/29/2020. TECHNIQUE: CT scan of the abdomen and pelvis is performed from the lung bases to the proximal femora. Images are reviewed in the axial, sagittal, and coronal planes. IV contrast was not administered for this examination. Note that the examination is significantly suboptimal without oral and IV contrast. A dose lowering technique was utilized adhering to the principles of ALARA. CT DOSE: 229.48 mGy.cm FINDINGS: Lung bases: The heart is normal in size and without pericardial effusion. There are coronary artery calcifications. There are scattered calcified granulomas. The lung bases are otherwise clear noting bibasilar scarring/atelectasis. Liver: The unenhanced liver is enlarged, measuring over 18 cm in length. The liver is otherwise normal in contour and attenuation. There is no intrahepatic biliary ductal dilatation. Gallbladder: Unremarkable. Spleen: Normal in size and attenuation. Pancreas: The unenhanced pancreas is grossly unremarkable. Adrenal glands: Unremarkable. Kidneys: The unenhanced kidneys are normal in size and without hydronephrosis. There are no renal calculi identified. There is no evidence of contour deforming renal mass lesion. Abdominal vasculature: The abdominal aorta is normal in course and caliber noting mild atherosclerotic calcification. Bowel: There is rectosigmoid fecal retention moderate constipation. Liquid stool seen throughout the colon. No bowel obstruction is identified. There is no colonic wall thickening or surrounding inflammation. There are also fluid-filled loops of small bowel. The appendix is not identified. Peritoneum: There is no intraperitoneal free air or abdominal ascites. Lymphadenopathy: None. Pelvic viscera: The bladder is largely decompressed and grossly unremarkable. The uterus and adnexa are normal as visualized. Skeletal structures: The skeletal structures are osteopenic. There is mild lumbosacral spondylosis. No lytic or blastic lesions are seen. There are healed right posterior rib fractures. IMPRESSION: 1. There is moderate constipation with liquid stool seen throughout the colon. There are also fluid-filled loops of small bowel. Correlate clinically for evidence of a nonspecific enteritis/diarrheal illness. 2. There is no bowel wall thickening or surrounding inflammation. 3. Mild hepatomegaly. 4. Additional findings as above. ACT 112: Negative or not required by law. Electronically signed by: Wale Ramsey M.D. 10/13/2021 6:01 PM Discharge Plan Visit Data Chief Complaint: Confusion Stated Complaint: REF BY , CONFUSION, NAUSEA, FEVER ED Provider: Wale Odonnell Discharge Problem: Hypotension, MARLA (acute kidney injury), Flu-like symptoms, Acute hyponatremia Patient Disposition: Admitted As Inpatient Condition: Fair Discharge Instructions Interventions: ED Discharge Assessment Last Done: 10/13/21 22:46
[2021-10-13] MEDS ORDERED: SODIUM CHLORIDE 0.9% 1000ML 500 ML IV ONE ×2 (17:44→22:24)
--- NOTE | 2021-10-13 18:04 | CT Scan Report ---
CT SCAN OF THE ABDOMEN AND PELVIS WITHOUT IV CONTRAST CLINICAL HISTORY: General and abdominal pain. Fever. COMPARISON STUDY: Abdominal CT dated 01/29/2020. TECHNIQUE: CT scan of the abdomen and pelvis is performed from the lung bases to the proximal femora. Images are reviewed in the axial, sagittal, and coronal planes. IV contrast was not administered for this examination. Note that the examination is significantly suboptimal without oral and IV contrast . A dose lowering technique was utilized adhering to the principles of ALARA. CT DOSE: 229.48 mGy.cm FINDINGS: Lung bases: The heart is normal in size and without pericardial effusion. There are coronary artery c alcifications. There are scattered calcified granulomas. The lung bases are otherwise clear noting bi basilar scarring/atelectasis. Liver: The unenhanced liver is enlarged, measuring over 18 cm in length. The liver is otherwise tami l in contour and attenuation. There is no intrahepatic biliary ductal dilatation. Gallbladder: Unremarkable. Spleen: Normal in size and attenuation. Pancreas: The unenhanced pancreas is grossly unremarkable. Adrenal glands: Unremarkable. Kidneys: The unenhanced kidneys are normal in size and without hydronephrosis. There are no renal jerry culi identified. There is no evidence of contour deforming renal mass lesion. Abdominal vasculature: The abdominal aorta is normal in course and caliber noting mild atheroscleroti c calcification. Bowel: There is rectosigmoid fecal retention moderate constipation. Liquid stool seen throughout the colon. No bowel obstruction is identified. There is no colonic wall thickening or surrounding inflamm ation. There are also fluid-filled loops of small bowel. The appendix is not identified. Peritoneum: There is no intraperitoneal free air or abdominal ascites. Lymphadenopathy: None. Pelvic viscera: The bladder is largely decompressed and grossly unremarkable. The uterus and adnexa a re normal as visualized. Skeletal structures: The skeletal structures are osteopenic. There is mild lumbosacral spondylosis. N o lytic or blastic lesions are seen. There are healed right posterior rib fractures. IMPRESSION: 1. There is moderate constipation with liquid stool seen throughout the colon. There are also fluid-f illed loops of small bowel. Correlate clinically for evidence of a nonspecific enteritis/diarrheal il lness. 2. There is no bowel wall thickening or surrounding inflammation. 3. Mild hepatomegaly. 4. Additional findings as above. ACT 112: Negative or not required by law. Electronically signed by: Wale Ramsey M.D. 10/13/2021 6:01 PM
[2021-10-13 18:14] LABS: Appearance Urine Cloudy (Clear); Bacteria Urine Automated Negative (Negative); Bilirubin Urine Negative (Negative); Blood Urine Negative (Negative); Color Urine Dark Yellow; Epithelial Cell Urine Auto >30 /lpf (0-5); Glucose Urine UA Negative (Negative); Ketones Urine Trace (Negative); Leukocyte Esterase Urine Negative (Negative); Nitrite Urine Negative (Negative); Protein Urine 2+ (Negative); Specific Gravity Urine 1.021 (1.000-1.030); Urobilinogen Urine Negative (Negative)
[2021-10-13 18:36] LABS: Lyme Ab IgG w/WB Rflx Negative (Negative); Lyme Ab IgM w/WB Rflx Negative (Negative)
[2021-10-13 18:58] LABS: Cast Urine Automated >30 /lpf (0-5); Mucus Urine Present (None Prsent)
[2021-10-13 18:59] LABS: Calcium Oxalate Crystals Urine Present (None Prsent)
--- NOTE | 2021-10-13 19:47 | History & Physical Report ---
Date of Service October 13, 2021 Assessment & Plan (1) Abdominal pain: Plan: - Abdominal pain with fever, myalgias, nausea, weakness--ddx a this time is gastroenteritis vs food poisoning vs hepatitis infection. CT a/p with hepatomegaly, fluid filled loops, constipation with liquid stool throughout the colon consistent with a enteritis. She does have a history of consitpation and abdominal pain, carries dx of gastroparesis and was recenl diagnosed with a rectal pouch and told "my small intestine sits too low". She takes frequent MiraLax for this. - Initial lactate 2.2, now down to 0.5 after IVF. PCT 7.46, with WBC 3.98. Initially hypotensive but with MAP > 65, suspect she is just dehydrated. LFTs mildly elevated. - For now, rehydrate with IVF. Control pain with IV morphine. Avoiding Tylenol for elevated LFTs/new hepatomegaly, NSAIDs due to MARLA. Anti emetics ordered. - To address diarrhea, Stool GI PCR panel ordered, as well as hepatitis panel given hepatomegaly and elevated LFTs, both new for patient w/ abdominal pain and fevers. - Received initial dose of cefepime in ED. Currently do not see a bacterial source requiring further abx. Blood cultures sent, can decide to restart antibiotics if source becomes evident. (2) Hyponatremia: Plan: - 128, in setting of diarrhea and decreased PO intake x3 days due to illness. May be partially contributing to weakness. - Will order serum and urine osm, urine sodium. - For now, hydrate with NSS x 1 L, follow sodium on BMP in AM. (3) Elevated LFTs: Plan: - AST and ALT 66, [address] AP. - Will order hepatitis panel as above, CMP in AM. (4) Diarrhea: Plan: - Takes Miralax for constipation, recently diagnosed at [facility] with a rectal pouch. Unsure if loose stools are diarrhea and illness related or just too much Lasix. - Management as above. (5) Acute kidney injury: Plan: - BUN 28, Cr 2.64, baseline Cr ~ 0.70. - Suspect due to poor po intake, acute illness suspected to be acute gastroenteritis. - Hold flurbiprofen, lisinopril, avoid further nephrotoxic agents and renally dose medications as able. - Received 1.5 L NS fluids in ED, have ordered additional maintenance IVF for overnight. - Follow renal function in AM. (6) Hypertension: Plan: - Holding lisinopril and amlodipine for now given MARLA, hypotension. - Patient initially hypotensive, MAP maintained > 65, is responding appropriately to IVF. (7) Hypothyroidism: Plan: - Continue levothyroxine 75 mcg daily. (8) Depression: Plan: - Continue venlafaxine 300 mg daily, nortriptyline 25 mg HS, lamotrigine 25 mg daily. - Holding trazodone and melatonin given reports od fogginess/drowsiness over the past few days. Plan - Admitted to PCU. - SCds for VTE ppx. - Full Code. History of Present Illness Chief Complaint: fever, nausea, weakness x3 days Primary Care Provider: Breana Calixto MD Everett Samuel is a 66 y/o female with PMH significant for hypertension, hypothyroidism, PUD, GERD, gastroparesis, migraines, depression, and and rectal pouch. She was referred over to at the recommendation of her PCP for concerns for sepsis. Tuesday evening, he developed diffuse body aches all over. She went to bed and woke up the next morning feeling much better, however unfortunately for the course of today she developed body aches, weakness, fevers up to 102 F, as well as nausea and diffuse abdominal pain. She has been having loose stools, 2 to 3/day, however she takes MiraLAX frequently due to her recently diagnosed rectal pouch, attributes her frequent loose stools to this. They have been nonpainful and nonbloody. She is without any upper respiratory symptoms such as shortness of breath, cough, denies chest pain or palpitations, no headaches, visual changes, or neck stiffness. Dysuria, hematuria, or urinary retention. She tested herself for COVID at home twice, both negative. SHe ordered food from a local pizza place about one week ago, ate pozza and salad. Symptoms started 3-4 days after this, no one else at home who ate the food is sick. In ED, she has been hypotensive SBP's 80 to 90s, DBP 60s, maintaining MAP >65, all vital signs within normal limits. Labs significant for decreased WBC at 3.98, sodium 128, elevated at 28, creatinine elevated 2.64 with baseline of around 0.70. AST and ALT are mildly elevated at 66 and 54 respectively. Procalcitonin 7.46. Initial lactate 2.2, repeat now 0.5 after receiving 1.5 L NS. UA is contaminated with epithelial cells, however shows WBCs, RBCs, hyaline casts, no nitrates or leuk esterase or bacteria. Negative Lyme, anaplasmosis, babesia. COVID-negative. CT a/p showed mild hepatomegaly, moderate constipation with stool throughout the colon and fluid-filled loops of small bowel. Allergies Allergy/AdvReac Type Severity Reaction Status Date / Time atenolol Allergy Intermediate RESTLESS Verified 10/13/21 18:09 nickel Allergy Intermediate MUST WEAR Verified 10/13/21 18:09 GOLD OR SILVER ONLY-RASH Penicillins Allergy Unknown A Verified 10/13/21 18:09 CHILD-UNKNOWN codeine AdvReac Intermediate "DEPRESSED Verified 10/13/21 18:09 CENTRAL NERVOUS SYSTEM" metoclopramide AdvReac Intermediate AGITATED Verified 10/13/21 18:09 Home Medications Medication Instructions Recorded Confirmed Type Medical Marijuana 1 dose inhalation HS 03/09/19 10/13/21 History acyclovir 400 mg tablet 400 mg PO BID 03/09/19 10/13/21 History amlodipine 10 mg tablet 10 mg PO PM 03/09/19 10/13/21 History ascorbic acid (vitamin C) 500 mg 500 mg PO HS 03/09/19 10/13/21 History tablet (Vitamin C) biotin 10,000 mcg capsule 10,000 mcg PO QAM 03/09/19 10/13/21 History cholecalciferol (vitamin D3) 25 1,000 unit PO QAM 03/09/19 10/13/21 History mcg (1,000 unit) chewable tablet (Vitamin D3) flurbiprofen 100 mg tablet 100 mg PO BID 03/09/19 10/13/21 History glucosamine sulf dipot 1 cap PO BID 03/09/19 10/13/21 History chlr,msm,chond 550 mg-C 30 mg-maciel 1 mg capsule (Glucosamine Chondroitin) levothyroxine 75 mcg tablet 75 mcg PO 6XWK 03/09/19 10/13/21 History (Synthroid) lisinopril 40 mg tablet 40 mg PO QPM 03/09/19 10/13/21 History magnesium oxide 400 mg PO QAM 03/09/19 10/13/21 History melatonin 5 mg tablet 5 mg PO HS 03/09/19 10/13/21 History multivitamin 1 tab PO PM 03/09/19 10/13/21 History nortriptyline 25 mg capsule 25 mg PO PM 03/09/19 10/13/21 History potassium chloride 10 mEq 10 meq PO HS 03/09/19 10/13/21 History capsule,extended release trazodone 100 mg tablet 100 mg PO HS 03/09/19 10/13/21 History venlafaxine 75 mg tablet 300 mg PO QAM 03/09/19 09/02/21 History vitamin B complex-folic acid 0.4 1 tab PO QAM 03/09/19 09/02/21 History mg tablet (Super B Maxi Complex) Cranberry Extract Otc 2 tab PO BID 08/28/21 10/13/21 History ferrous sulfate 325 mg (65 mg 325 mg PO QAM 08/28/21 10/13/21 History iron) tablet linaclotide 290 mcg capsule 290 mcg PO QAM 08/28/21 10/13/21 History (Linzess) lamotrigine 25 mg tablet 25 mg PO DAILY 10/13/21 10/13/21 History Past Med/Surg History Medical History Carpal tunnel syndrome Degenerative disc disease Depression Eustachian tube dysfunction Gastroparesis GERD (gastroesophageal reflux disease) HX: breast cancer RIGHT > 2007 > NO CHEMO Hypertension Hypothyroidism Migraine HX Peptic ulcer disease HX Weight loss OVER THE LAST FEW YRS - [facility]LO[facility] NO FINDINGS Surgical History History of bilateral tubal ligation History of bunionectomy right History of colonoscopy History of discectomy LUMBAR FUSION History of esophagogastroduodenoscopy (EGD) History of neck surgery X 2 History of tonsillectomy Hx of foot surgery LEFT TO TOE Hx of lumpectomy R BREAST Hx of neck surgery CAN'T LEAN HEAD BACK VERY FAR. > (HASNT HAD TROUBLE WITH ANESTHESIA THOUGH) Family History Grandmother (Maternal) Diabetes Father Cancer Family hx of colon cancer Social History Smoking Status: Never smoker Cigarettes Per Day: 10 YR AGO; Second Hand Exposure: No; Do You Dip or Chew Tobacco: No; Tobacco Cessation Education Requested by Patient: No Hx Alcohol Use: No Hx Substance Use: No Preferred Language: Uzbek Communication Ability: Effective Budget And Policy Analyst Required: No Beliefs That Will Affect Care: None Current Living Situation: Spouse current occupational status: retired Other Information That Helps Us Care for You: No Feels Safe at Home: Yes Safety Concerns: Feels Safe At This Time Assistive Devices: None Review of Systems Review of Systems: Constitutional: fevers, weakness, fatigue, myalgias, anorexia x 3 days; no night sweats Eyes: No diplopia, no worsening or blurred vision ENT: normal hearing, no trouble swallowing Respiratory: No cough, sputum, dyspnea at rest or on exertion Cardiovascular: No chest pain, tightness or palpitations Abdomen: diffuse abdominal pain with nausea and diarrhea; no vomiting, constipation, melena, or hematochezia : Denies dysuria, hematuria, increased urgency/frequency, urinary retention Musculoskeletal: No joint pain, calf pain, swelling Neurologic: No weakness, numbness/tingling, or balance problems Psychiatric: No anxiety or depression Skin: No rash or itch Physical Exam Physical Exam: General: awake, alert, no apparent distress Head: Normocephalic, atraumatic ENT: PERRL, EOMI, no pharyngeal exudate, mucous membranes moist Chest: Clear to auscultation, on room air, no adventitious breath sounds Cardiac: Regular rate and rhythm, no murmur, no JVD, normal peripheral pulses, good capillary refill Abdominal: NABS x 4 quadrants, soft, nontender to palpation, no rebound, guarding or tenderness Extremities: Normal inspection, no peripheral edema or erythema, calfs nontender to palpation Psych: Normal mood and affect Neuro: AAO x 3, strength intact bilaterally and rated 5/5, no motor deficits, speech is clear, no peripheral sensory deficits Skin: no rash or erythema Results & Data Results & Data ([facility]) Vital Signs (Past 12 Hours) Vital Signs Temp Pulse Pulse Resp BP BP Pulse Ox 10/13/21 18:54 37.4 C 76 20 89/60 L 99 10/13/21 18:00 71 20 93/56 L 99 10/13/21 17:30 73 21 84/52 L 79 L 10/13/21 17:20 71 14 84/60 L 96 10/13/21 17:10 63 14 86/57 L 97 10/13/21 17:00 68 15 80/55 L 10/13/21 16:33 74 19 106/57 L 96 10/13/21 15:34 36.6 C 100 H 18 85/59 L 93 O2 Del Method 10/13/21 18:54 Room Air 10/13/21 18:00 10/13/21 17:30 10/13/21 17:20 10/13/21 17:10 10/13/21 17:00 10/13/21 16:33 Room Air 10/13/21 15:34 Room Air Laboratory Results Abnormal lab results 10/13/21 10/13/21 10/13/21 Range/Units 16:05 16:05 16:05 WBC 3.98 L (4.8-10.8) K/ul Lymph # (Auto) 0.34 L (1.2-3.4) K/uL Whitley # (Auto) 0.22 L (0.24-0.82) K/uL Sodium 128 L (136-145) mmol/L Chloride 94 L (98-107) mmol/L BUN 28 H (6-23) mg/dl Creatinine 2.64 H (0.6-1.2) mg/dl Glucose 136 H (70-99(Fasting)) mg/dl Lactate 2.2 H* (0.4-2.0) mmol/L Magnesium 2.5 H (1.7-2.4) mg/dl AST 66 H (13-39) U/L ALT 54 H (7-52) U/L Procalcitonin (0-0.5) ng/ml Urine Appearance (Clear) Urine Protein (Negative) Urine Ketones (Negative) Urine WBC (Auto) (0-5) /hpf Urine RBC (Auto) (0-4) /hpf U Hyaline Cast (Auto) (0-5) /lpf U Epithel Cells (Auto) (0-5) /lpf Calcium Oxalate Crystal (None Prsent) Urine Mucus (None Prsent) 10/13/21 10/13/21 Range/Units 16:05 17:52 WBC (4.8-10.8) K/ul Lymph # (Auto) (1.2-3.4) K/uL Whitley # (Auto) (0.24-0.82) K/uL Sodium (136-145) mmol/L Chloride (98-107) mmol/L BUN (6-23) mg/dl Creatinine (0.6-1.2) mg/dl Glucose (70-99(Fasting)) mg/dl Lactate (0.4-2.0) mmol/L Magnesium (1.7-2.4) mg/dl AST (13-39) U/L ALT (7-52) U/L Procalcitonin 7.46 H (0-0.5) ng/ml Urine Appearance Cloudy A (Clear) Urine Protein 2+ H (Negative) Urine Ketones Trace H (Negative) Urine WBC (Auto) 5-10 H (0-5) /hpf Urine RBC (Auto) 10-30 H (0-4) /hpf U Hyaline Cast (Auto) >30 H (0-5) /lpf U Epithel Cells (Auto) >30 H (0-5) /lpf Calcium Oxalate Crystal Present A (None Prsent) Urine Mucus Present A (None Prsent) Diagnostic Findings Chest X-Ray 10/13/21 16:34 SINGLE VIEW CHEST CLINICAL HISTORY: Infection FINDINGS: An AP, portable, upright chest radiograph is compared to study dated 02/26/2019. The cardiomediastinal silhouette is unremarkable. The lungs and pleural spaces are clear. No pneumothorax is seen. The skeletal structures are osteopenic. There are healed right-sided rib fractures. Fusion hardware is noted the cervicothoracic junction. IMPRESSION: No active disease in the chest. ACT 112: Negative or not required by law. Electronically signed by: Wale Ramsey M.D. 10/13/2021 4:46 PM Abdomen/Pelvis CT 10/13/21 16:53 CT SCAN OF THE ABDOMEN AND PELVIS WITHOUT IV CONTRAST CLINICAL HISTORY: General and abdominal pain. Fever. COMPARISON STUDY: Abdominal CT dated 01/29/2020. TECHNIQUE: CT scan of the abdomen and pelvis is performed from the lung bases to the proximal femora. Images are reviewed in the axial, sagittal, and coronal planes. IV contrast was not administered for this examination. Note that the examination is significantly suboptimal without oral and IV contrast. A dose lowering technique was utilized adhering to the principles of ALARA. CT DOSE: 229.48 mGy.cm FINDINGS: Lung bases: The heart is normal in size and without pericardial effusion. There are coronary artery calcifications. There are scattered calcified granulomas. The lung bases are otherwise clear noting bibasilar scarring/atelectasis. Liver: The unenhanced liver is enlarged, measuring over 18 cm in length. The liver is otherwise normal in contour and attenuation. There is no intrahepatic biliary ductal dilatation. Gallbladder: Unremarkable. Spleen: Normal in size and attenuation. Pancreas: The unenhanced pancreas is grossly unremarkable. Adrenal glands: Unremarkable. Kidneys: The unenhanced kidneys are normal in size and without hydronephrosis. There are no renal calculi identified. There is no evidence of contour deforming renal mass lesion. Abdominal vasculature: The abdominal aorta is normal in course and caliber noting mild atherosclerotic calcification. Bowel: There is rectosigmoid fecal retention moderate constipation. Liquid stool seen throughout the colon. No bowel obstruction is identified. There is no colonic wall thickening or surrounding inflammation. There are also fluid-filled loops of small bowel. The appendix is not identified. Peritoneum: There is no intraperitoneal free air or abdominal ascites. Lymphadenopathy: None. Pelvic viscera: The bladder is largely decompressed and grossly unremarkable. The uterus and adnexa are normal as visualized. Skeletal structures: The skeletal structures are osteopenic. There is mild lumbosacral spondylosis. No lytic or blastic lesions are seen. There are healed right posterior rib fractures. IMPRESSION: 1. There is moderate constipation with liquid stool seen throughout the colon. There are also fluid-filled loops of small bowel. Correlate clinically for evidence of a nonspecific enteritis/diarrheal illness. 2. There is no bowel wall thickening or surrounding inflammation. 3. Mild hepatomegaly. 4. Additional findings as above. ACT 112: Negative or not required by law. Electronically signed by: Wale Ramsey M.D. 10/13/2021 6:01 PM Code Status & VTE Plan Code Status Full Code. Supervising Physician Co-Signing Physician Notes Attending addendum: I have physically seen this patient, have supervised the BRADEN's activities, and agree with the H&P unless as otherwise noted. Assessment and Plan: Abdominal pain/enteritis/history of gastro paresis/rectal pouch/told small intestines sit to low- As noted on CT Hold Juan Jose and Isabel Status post 1500 mils in the ED of normal saline Give additional 1 L normal saline now Follow blood cultures Hold on additional antibiotics at this time, having been given cefepime by the ED Acute kidney injury- Creatinine 2.64 on admission, with baseline 0.72 Fluid resuscitation as noted Recheck laboratories in a.m. Hyponatremia- Sodium 128 Likely secondary to diarrheal illness Check serum and urine osmolality IV fluids as noted above Elevated LFTs- Order a acute hepatitis panel PG Care Time/CCT Total # of Minutes Spent Total Time Spent with Patient: Total time spent is greater than 50% in coordination of care (as documented) at patient's floor/unit and/or counseling patient: Coding Level of Care Code 90191 Initial Inpt Care Lvl 2 Diagnoses Abdominal pain R10.9 Hyponatremia E87.1 Elevated LFTs R79.89 Diarrhea R19.7 Acute kidney injury N17.9 Hypertension I10 Hypothyroidism E03.9 Depression F32.9
[2021-10-13] MEDS ORDERED: LACTATED RINGER'S 1,000 ML IV SCH (20:15)
[2021-10-13] MEDS ORDERED: SODIUM CHLORIDE 0.9% 1000ML 1,000 ML IV SCH (21:15)
[2021-10-13] MEDS ORDERED: ONDANSETRON INJ 2 MG/ML 2 ML VIAL IV PRN (22:42)
[2021-10-13] MEDS ORDERED: POLYETHYLENE (MIRALAX) 17 GM PACK PO PRN (22:42)
[2021-10-13] MEDS ORDERED: NON-FORMULARY MEDICATION (Glucos Sul 2kcl-Msm-Chond-C-Mn [Glucosamine Chondroitin] 550-30- PO SCH (22:42)
[2021-10-13] MEDS ORDERED: MoRPHine SULFATE 4 MG/ML 1 ML CARP\\VIAL IV PRN (22:42)
[2021-10-13] MEDS ORDERED: MoRPHine SULFATE 2 MG/ML CARP ONE (23:09)
[2021-10-13] MEDS: MoRPHine SULFATE 2 MG/ML CARP IV PRN (23:12)
[2021-10-13 23:14] LABS: Adenovirus F 40/41 PCR Not Detected (NotDetected); Astrovirus PCR Not Detected (NotDetected); Campylobacter PCR Not Detected (NotDetected); Clostridium diff Toxin A/B PCR Not Detected (NotDetected); Cryptosporidium PCR Not Detected (NotDetected); Cyclospora cayetanensis PCR Not Detected (NotDetected); Entamoeba histolytica PCR Not Detected (NotDetected); Enteroaggregative E.coli(EAEC) Not Detected (NotDetected); Enteropathogenic E.coli (EPEC) Not Detected (NotDetected); Enterotoxigenic E.coli (ETEC) Not Detected (NotDetected); Giardia lamblia PCR Not Detected (NotDetected); Norovirus GI/GII PCR Not Detected (NotDetected); Plesiomonas shigelloides PCR Not Detected (NotDetected); Rotavirus A PCR Not Detected (NotDetected); Salmonella PCR Not Detected (NotDetected); Sapovirus PCR Not Detected (NotDetected); Shiga-like Toxin E.coli (STEC) Not Detected (NotDetected); Shigella/Enteroinvasive E.coli Not Detected (NotDetected); Vibrio cholerae PCR Not Detected (NotDetected); Vibrio species PCR Not Detected (NotDetected); Yersinia enterocolitica PCR Not Detected (NotDetected)
[2021-10-13] MEDS: NORTRIPTYLINE HCL 25 MG CAP PO SCH (23:49)
[2021-10-13] MEDS: ACYCLOVIR 400 MG TAB PO SCH (23:49)
[2021-10-13] MEDS: ASCORBIC ACID 500 MG TAB PO SCH (23:49)
[2021-10-14] MEDS ORDERED: MELATONIN 3 MG TAB PO PRN (01:48)
[2021-10-14] MEDS: MoRPHine SULFATE 2 MG/ML CARP IV PRN ×2 (02:17→11:51)
[2021-10-14] MEDS: LEVOTHYROXINE SODIUM 75 MCG TABLET PO SCH (06:04)
--- NOTE | 2021-10-14 07:47 | Hospitalist Progress Note ---
Date of Service October 14, 2021 Assessment & Plan (1) MARLA (acute kidney injury): Plan: 66 y/o female with PMH significant for hypertension, hypothyroidism, PUD, GERD, gastroparesis, migraines, depression, and and rectal pouch admitted for sepsis. Sepsis -- resolved - Initial lactate 2.2, down to 0.5 after IVF. PCT 7.46, - Initially hypotensive improved after IV fluids - Received dose of cefepime in ED - Stool PCR panel negative for any GI pathogens -- see treatment for presumed infection below Anaplasmosis -- suspected - Leukopenia, thrombocytopenia, mild transaminitis, renal failure and constitutional symptoms raising suspicion for Anaplasma - Blood smear for above was negative, but will order PCR testing, which may take several days to result - Will start doxycycline 100 mg twice daily for presumed tickborne illness Hyponatremia: -Initially 128, in setting of diarrhea and decreased PO intake x3 days due to illness -Improved to 135 after IV hydration -Continue to monitor Elevated LFTs: - AST and ALT 66, 54 respectively on admission with hepatomegaly on CT A/P - Hepatitis panel pending, as above suspicion at this time higher for tickborne illness Acute kidney injury -- resolved - BUN 28, Cr 2.64, baseline Cr ~ 0.70 - Suspect due to poor po intake, acute illness suspected to be acute gastroenteritis - Lisinopril still on hold more due to relatively low BP - Follow renal function Hypertension: - Holding lisinopril and amlodipine for now given initial MARLA, hypotension -- MARLA now resolved but BP still on the lower end of normal - Patient initially hypotensive, MAP maintained > 65, responded appropriately to IVF. Hypothyroidism: - Continue levothyroxine 75 mcg daily. Depression: - Continue venlafaxine 300 mg daily, nortriptyline 25 mg HS, lamotrigine 25 mg daily. - Will restart traodone and melatonin as pt feeling unable to sleep DVT ppx: Heparin SQ Diet: Heart healthy Dispo: PCU CODE: Full (2) Sepsis: (3) Hyponatremia: (4) Elevated LFTs: (5) Acute kidney injury: (6) Diarrhea: (7) Hypothyroidism: (8) Hypertension: (9) GERD (gastroesophageal reflux disease): (10) Depression: Admission and Anticipated Discharge Date Admission Date: October 13, 2021 Supervising Physician Co-Signing Physician Notes I personally examined the patient and verified all hilario points of history and exam, discussed case, and agree with decision making with Dr Rodrigues. Feeling better. No new complaints. Vitals noted, in general she is awake and alert pleasant no distress. HEENT normocephalic atraumatic mucous membranes moist. Breathing unlabored no accessory muscle use good effort. Skin shows no rashes no pallor or icterus. Neuro without focal deficits. Sepsis syndromewith constitutional symptoms, leukopenia/thrombocytopenia, and transaminitisthe pattern points heavily towards anaplasmosis. She is not showing any focal signs or symptoms consistent with any specific bacterial infection. Babesiosis can appear similar, but thus far Anaplasma has been much more prevalent in our region. To that endempiric doxycyclineas long as she is feeling the same or better tomorrowshe would like to go home and would certainly be safe for close outpatient follow-up. If she is failing to improve, then may need to consider an empiric change in treatment to also cover things like babesiosis. Serial exams today and tomorrow to make sure nothing else evolves. Repeat labs. Otherwise as above Subjective Patient states she is feeling better this morning. Upon discussion, she states that starting around Tuesday or Tuesday of last week she noticed some generalized, constitutional symptoms. Specifically, she noticed myalgias, arthralgias, headache, brain fog. A day or so later, she did begin to have some GI symptoms, including diarrhea. She denies any fever. But states that she was feeling very fatigued. She did mention that she spends a lot of time outside and was recently spending some time at [place] in [place] care of some animals for a friend. States it is entirely possible that she may have had tick bites, though she did not notice any specifically. Currently denies headache, dizziness, nausea, vomiting, abdominal pain, chest pain, palpitations, shortness of breath, cough, rashes. Review of Systems Review of Systems: Per subjective Physical Exam Physical Exam: GENERAL: A&Ox3. NAD. HEENT: PERRL, EOMI. Moist mucous membranes. CHEST/LUNGS: CTAB A/P. No crackles, wheezes, rales, rhonchi. HEART: RRR. No m/g/r. No carotid bruits. ABDOMEN: NT/ND, soft. BS+ x4 EXTREMITIES: No cyanosis, no clubbing, no edema SKIN: Warm and dry. No rashes or lesions. PSYCHIATRIC: Euthymic affect, no SI, no pressured speech, no hallucinations NEUROLOGIC: No FND. CN II-XII grossly intact. Results & Data Results & Data ([facility]) Vital Signs (Past 12 Hours) Vital Signs Temp Pulse Pulse Resp BP Pulse Ox O2 Del Method 10/14/21 07:21 37.0 C 72 18 118/70 95 Room Air 10/14/21 06:37 75 10/14/21 03:57 37.0 C 72 14 127/69 97 Room Air 10/14/21 01:32 36.8 C 82 18 154/74 H 96 Room Air 10/13/21 23:03 70 20 109/62 99 Room Air 10/13/21 22:00 84 20 87/46 L 98 10/13/21 20:44 75 20 106/64 97 Room Air Resident Activity Tracking Resident Involvement: Resident Care Provided Care Provided: Adult Hospital Medicine
[2021-10-14 07:53] LABS: Hematocrit (blood only) 35.4 % (34.1-44.9); Hemoglobin 12.2 g/dl (12.0-16.0); Mean Corpuscular Hemoglobin 31.4 pg (25.0-34.0); Mean Corpuscular Hgb Conc 34.5 g/dL (32.0-36.0); Mean Platelet Volume 10.9 fL (9.4-12.3); Platelet Count 122 K/uL (130-400); RDW Coefficient of Variation 12.1 % (11.5-14.5); RDW Standard Deviation 40.3 fL (36.4-46.3); Red Blood Count 3.89 M/uL (3.93-5.22); White Blood Count 1.79 K/ul (4.8-10.8)
[2021-10-14 08:10] LABS: Basophils # (auto) 0.02 K/uL (0-0.2); Basophils % (auto) 1.1 %; Eosinophils # (auto) 0.06 K/uL (0-0.50); Eosinophils % (auto) 3.4 %; Immature Granulocytes # (auto) 0.01 K/uL (0.00-0.02); Immature Granulocytes % (auto) 0.6 %; Lymphocytes # (auto) 0.47 K/uL (1.2-3.4); Lymphocytes % (auto) 26.3 %; Monocytes # (auto) 0.17 K/uL (0.24-0.82); Monocytes % (auto) 9.5 %; Neutrophils # (auto) 1.06 K/uL (1.4-6.5); Neutrophils % (auto) 59.1 %
[2021-10-14 08:26] LABS: Albumin Globulin Ratio 1.8 (0.9-2); Albumin Level 3.5 gm/dl (3.4-5.0); Bilirubin,Total 0.3 mg/dl (0.2-1.0); Calcium 8.2 mg/dl (8.5-10.1); Creatinine Clr Calc Pharmacy 43.2 ml/min; Est GFR (African American) 72.2 ml/min; Est GFR (Non-African American) 62.3 ml/min; Magnesium 2.1 mg/dl (1.7-2.4); Potassium 3.6 mmol/L (3.5-5.1); Total Protein 5.5 gm/dl (6.0-8.3)
[2021-10-14] MEDS: VITAMIN B COMPLEX TAB PO SCH (08:32)
[2021-10-14] MEDS: ACYCLOVIR 400 MG TAB PO SCH ×2 (08:32→20:34)
[2021-10-14] MEDS: lamoTRIgine 25 MG TAB PO SCH (08:33)
[2021-10-14] MEDS: FERROUS SULFATE 325 MG TAB PO SCH (08:33)
[2021-10-14] MEDS: VENLAFAXINE HCL XR 150 MG CAPXR PO SCH (08:33)
[2021-10-14] MEDS: CHOLECALCIFEROL 1,000 UNITS 25 MCG TAB PO SCH (08:33)
[2021-10-14] MEDS: DOXYCYCLINE HYCLATE 100 MG CAP PO SCH ×2 (11:52→20:34)
--- NOTE | 2021-10-14 18:05 | Billing Data ---
Date of Service October 14, 2021 Coding Level of Care Code 89647 Subseq Hosp Care Lvl 3
--- NOTE | 2021-10-14 18:06 | Billing Data ---
Date of Service October 14, 2021 Coding Level of Care Code 90653 Subseq Hosp Care Lvl 3
[2021-10-14] MEDS: ASCORBIC ACID 500 MG TAB PO SCH (20:33)
[2021-10-14] MEDS: NORTRIPTYLINE HCL 25 MG CAP PO SCH (20:34)
[2021-10-14] MEDS: HEPARIN SOD 5,000 UNIT/0.5 ML VIAL SQ SCH (20:35)
[2021-10-14] MEDS ORDERED: traZODone HCL 100 MG TAB PO SCH (21:00)
[2021-10-15] MEDS: DOXYCYCLINE HYCLATE 100 MG CAP PO SCH (06:21)
[2021-10-15] MEDS: LEVOTHYROXINE SODIUM 75 MCG TABLET PO SCH (06:21)
[2021-10-15 07:13] LABS: Hematocrit (blood only) 35.8 % (34.1-44.9); Hemoglobin 12.1 g/dl (12.0-16.0); Mean Corpuscular Hemoglobin 30.6 pg (25.0-34.0); Mean Corpuscular Hgb Conc 33.8 g/dL (32.0-36.0); Mean Corpuscular Volume 90.4 fL (80.0-100.0); Mean Platelet Volume 10.5 fL (9.4-12.3); Platelet Count 154 K/uL (130-400); RDW Coefficient of Variation 12.1 % (11.5-14.5); RDW Standard Deviation 40.3 fL (36.4-46.3); Red Blood Count 3.96 M/uL (3.93-5.22); White Blood Count 2.23 K/ul (4.8-10.8)
--- NOTE | 2021-10-15 07:45 | Hospitalist Progress Note ---
Date of Service October 15, 2021 Assessment & Plan (1) MARLA (acute kidney injury): Plan: 66 y/o female with PMH significant for hypertension, hypothyroidism, PUD, GERD, gastroparesis, migraines, depression, and and rectal pouch admitted for sepsis. Sepsis -- resolved - Initial lactate 2.2, down to 0.5 after IVF. PCT 7.46, - Initially hypotensive improved after IV fluids - Received dose of cefepime in ED - Stool PCR panel negative for any GI pathogens -- see treatment for presumed infection below Anaplasmosis -- suspected - Leukopenia, thrombocytopenia, mild transaminitis, renal failure and constitutional symptoms raising suspicion for Anaplasma - Blood smear for above was negative, but will order PCR testing, which may take several days to result - Will start doxycycline 100 mg twice daily for presumed tickborne illness Hyponatremia: -Initially 128, in setting of diarrhea and decreased PO intake x3 days due to illness -Improved to 135 after IV hydration -Continue to monitor Elevated LFTs: - AST and ALT 66, 54 respectively on admission with hepatomegaly on CT A/P - Hepatitis panel pending, as above suspicion at this time higher for tickborne illness Acute kidney injury -- resolved - BUN 28, Cr 2.64, baseline Cr ~ 0.70 - Suspect due to poor po intake, acute illness suspected to be acute gastroenteritis - Lisinopril still on hold more due to relatively low BP - Follow renal function Hypertension: - Holding lisinopril and amlodipine for now given initial MARLA, hypotension -- MARLA now resolved but BP still on the lower end of normal - Patient initially hypotensive, MAP maintained > 65, responded appropriately to IVF. Hypothyroidism: - Continue levothyroxine 75 mcg daily. Depression: - Continue venlafaxine 300 mg daily, nortriptyline 25 mg HS, lamotrigine 25 mg daily. - Will restart traodone and melatonin as pt feeling unable to sleep DVT ppx: Heparin SQ Diet: Heart healthy Dispo: PCU CODE: Full (2) Sepsis: (3) Hyponatremia: (4) Elevated LFTs: (5) Diarrhea: (6) Hypothyroidism: (7) Hypertension: (8) GERD (gastroesophageal reflux disease): (9) Depression: Admission and Anticipated Discharge Date Admission Date: October 13, 2021 Review of Systems Review of Systems: Per subjective Physical Exam Physical Exam: GENERAL: A&Ox3. NAD. HEENT: PERRL, EOMI. Moist mucous membranes. CHEST/LUNGS: CTAB A/P. No crackles, wheezes, rales, rhonchi. HEART: RRR. No m/g/r. No carotid bruits. ABDOMEN: NT/ND, soft. BS+ x4 EXTREMITIES: No cyanosis, no clubbing, no edema SKIN: Warm and dry. No rashes or lesions. PSYCHIATRIC: Euthymic affect, no SI, no pressured speech, no hallucinations NEUROLOGIC: No FND. CN II-XII grossly intact. Results & Data Results & Data ([facility]) Vital Signs (Past 12 Hours) Vital Signs Temp Pulse Resp BP Pulse Ox O2 Del Method 10/14/21 20:58 37.1 C 73 18 148/80 H 97 Room Air
[2021-10-15 07:46] LABS: Albumin Globulin Ratio 1.7 (0.9-2); Albumin Level 3.5 gm/dl (3.4-5.0); Bilirubin,Total 0.3 mg/dl (0.2-1.0); Calcium 8.4 mg/dl (8.5-10.1); Creatinine Clr Calc Pharmacy 65.5 ml/min; Est GFR (African American) 107.4 ml/min; Est GFR (Non-African American) 92.7 ml/min; Globulin 2.1 gm/dl (2.5-4.0); Magnesium 1.9 mg/dl (1.7-2.4); Total Protein 5.6 gm/dl (6.0-8.3)
[2021-10-15 08:22] LABS: ALC (manual) 1.61 K/uL (1.2-3.4); ANC (manual) 0.31 K/uL (1.4-6.5); Basophils # (manual) 0.04 K/uL (0-0.2); Basophils % (manual) 2 %; Eosinophils # (manual) 0.16 K/uL (0-0.50); Eosinophils % (manual) 7 %; Lymphocytes # (manual) 1.18 K/uL (1.2-3.4); Lymphocytes % (manual) 53 %; Monocytes # (manual) 0.13 K/uL (0.24-0.82); Monocytes % (manual) 6 %; Neutrophils # (manual) 0.31 K/uL (1.4-6.5); Neutrophils % (manual) 14 %; RBC Morphology Unremarkable; Reactive Lymphocytes # (manual) 0.42 K/uL; Reactive Lymphocytes % (manual) 19 %
[2021-10-15] MEDS: lamoTRIgine 25 MG TAB PO SCH (08:58)
[2021-10-15] MEDS: CHOLECALCIFEROL 1,000 UNITS 25 MCG TAB PO SCH (08:59)
[2021-10-15] MEDS: ACYCLOVIR 400 MG TAB PO SCH (08:59)
[2021-10-15] MEDS: VITAMIN B COMPLEX TAB PO SCH (08:59)
[2021-10-15] MEDS: FERROUS SULFATE 325 MG TAB PO SCH (09:00)
[2021-10-15] MEDS: VENLAFAXINE HCL XR 150 MG CAPXR PO SCH (09:00)
[2021-10-15] MEDS ORDERED: LINACLOTIDE 145 MCG CAPSULE PO SCH (09:00)
[2021-10-15] MEDS: HEPARIN SOD 5,000 UNIT/0.5 ML VIAL SQ SCH (09:02)
--- NOTE | 2021-10-15 10:16 | Discharge Summary ---
Date of Service October 15, 2021 Principal Diagnosis Anaplasmosis Discharge Exam GENERAL: A&Ox3. NAD. CHEST/LUNGS: CTAB A/P. No crackles, wheezes, rales, rhonchi. HEART: RRR. No m/g/r. No carotid bruits. ABDOMEN: NT/ND, soft. BS+ x4 EXTREMITIES: No cyanosis, no clubbing, no edema SKIN: Warm and dry. No rashes or lesions. PSYCHIATRIC: Euthymic affect, no SI, no pressured speech, no hallucinations NEUROLOGIC: No FND. CN II-XII grossly intact. Discharge Data Allergies Allergy/AdvReac Type Severity Reaction Status Date / Time atenolol Allergy Intermediate RESTLESS Verified 10/13/21 18:09 nickel Allergy Intermediate MUST WEAR Verified 10/13/21 18:09 GOLD OR SILVER ONLY-RASH Penicillins Allergy Unknown A Verified 10/13/21 18:09 CHILD-UNKNOWN codeine AdvReac Intermediate "DEPRESSED Verified 10/13/21 18:09 CENTRAL NERVOUS SYSTEM" metoclopramide AdvReac Intermediate AGITATED Verified 10/13/21 18:09 Consultations 10/13/21 19:17 ED Decision to Admit Stat Ordered Studies 10/13/21 16:53 CT abd pelvis wo con Stat Hospital Course (1) MARLA (acute kidney injury): 66 y/o female with PMH significant for hypertension, hypothyroidism, PUD, GERD, gastroparesis, migraines, depression, and and rectal pouch admitted for sepsis. Sepsis --resolved - Initial lactate 2.2, down to 0.5 after IVF. PCT 7.46, - Initially hypotensive improved after IV fluids - Received dose of cefepime in ED - Stool PCR panel negative for any GI pathogens -- see treatment for presumed infection below Anaplasmosis--suspected - Leukopenia, thrombocytopenia, mild transaminitis, renal failure and constitutional symptoms raising suspicion for Anaplasma - Blood smear for above was negative -- PCR testing pending, which may take several days to result - Improving on doxycycline 100 mg twice daily -- continue for 10 days total as outpatient - Advised if no better or worsening, should f/u with PCP or return to hospital for reevaluation due to possibility of Babesiosis, which would be treated with azithromycin & atovaquone instead Hyponatremia -- resolved -Initially 128, in setting of diarrhea and decreased PO intake x3 days due to illness -Resolved on day of DC Elevated LFTs: - AST and ALT 66, 54 respectively on admission with hepatomegaly on CT A/P - Hepatitis panel pending, as above suspicion higher for tickborne illness Acute kidney injury --resolved - BUN 28, Cr 2.64, baseline Cr ~ 0.70 - Suspect due to poor po intake, acute illness suspected to be acute gastroenteritis - Lisinopril still on hold more due to relatively low BP - Follow renal function Hypertension: - Held lisinopril and amlodipine for now given initial MARLA, hypotension -- MARLA now resolved but BP still on the lower end of normal - Patient initially hypotensive, MAP maintained > 65, responded appropriately to IVF - On day of DC BP was back to somewhat elevated -- continue home BP meds Hypothyroidism: - Continue levothyroxine 75 mcg daily Depression: - Continue venlafaxine 300 mg daily, nortriptyline 25 mg HS, lamotrigine 25 mg daily. - Continue trazodone and melatonin for sleep Dispo: Home - Self Care (2) Sepsis: (3) Hyponatremia: (4) Elevated LFTs: (5) Diarrhea: (6) Hypothyroidism: (7) Hypertension: (8) GERD (gastroesophageal reflux disease): (9) Depression: Total Time Total Time Spent Total Time Spent (In Minutes): see attending attestation Discharge Plan Discharge Items Patient Disposition: Home - Self-Care Reason For Visit: SE[facility] [place] [employer] Discharge Diagnosis: Sepsis, anaplasmosis Condition on Discharge: Fair Activity: Per Instructions section Non-emergency contact: Primary Care Provider Call non-emergency contact if: you have any medication questions, your symptoms worsen and your temperature is above 101.5 Follow-up/Referrals: Breana Calixto MD [Primary Care Provider] - 10/19/21 9:10 am Diet: Heart Healthy Addtl Attending Provider Instructions: You were admitted to [facility] due to systemic, constitutional symptoms and concern for sepsis. While you had initial testing that was negative for tickborne illnesses, your symptoms are highly suspicious of likely anaplasmosis. As such, you were started on doxycycline and blood work was taken to be sent for further Anaplasma testing, as well as other tickborne illnesses. While admitted you improved significantly with IV fluid hydration and treatment with doxycycline. As you have continued to be stable, you will be discharged home to finish your antibiotic regimen. Your symptoms should continue to improve steadily for the next 9 days on this antibiotic. We recommend that you follow-up with your primary care provider for discussion of your hospitalization and monitoring of your condition going forward. If symptoms are not improving or worsening, please call your PCP for further recommendations. If you have any severe symptoms such as intractable nausea, vomiting, severe abdominal pain, chest pain, palpitations, shortness of breath, difficulty breathing, difficulty swallowing, or any other concerning symptoms, please return to the ED for reevaluation. Pending Studies at Discharge: Yes (Tickborne illness confirmatory testing) Stand-Alone Forms: [facility], Smoking Cessation Medications and DC Order Prescriptions: New doxycycline hyclate 100 mg Capsule 100 mg PO BID@0700,2100 Qty: 17 0RF Continued multivitamin Tablet 1 tab PO PM potassium chloride 10 mEq Capsule, Extended Release 10 meq PO HS venlafaxine 75 mg Tablet 300 mg PO QAM acyclovir 400 mg Tablet 400 mg PO BID levothyroxine [Synthroid] 75 mcg Tablet 75 mcg PO [id number] Rx Instructions: DO NOT TAKE ON MONDAYS. nortriptyline 25 mg Capsule 25 mg PO PM ascorbic acid (vitamin C) [Vitamin C] 500 mg Tablet 500 mg PO HS trazodone 100 mg Tablet 100 mg PO HS amlodipine 10 mg Tablet 10 mg PO PM biotin 10,000 mcg Capsule 10,000 mcg PO QAM flurbiprofen 100 mg Tablet 100 mg PO BID lisinopril 40 mg Tablet 40 mg PO QPM vitamin B complex-folic acid [Super B Maxi Complex] 0.4 mg Tablet 1 tab PO QAM melatonin 5 mg Tablet 5 mg PO HS cholecalciferol (vitamin D3) [Vitamin D3] 1,000 unit Tablet,Chewable 1,000 unit PO QAM magnesium oxide 400 mg magnesium Tablet 400 mg PO QAM Glucosamine Chondroitin 550-30-1 mg Capsule 1 cap PO BID Medical Marijuana 1 dose inhalation HS Linzess 290 mcg Capsule 290 mcg PO QAM ferrous sulfate 325 mg (65 mg iron) Tablet 325 mg PO QAM Cranberry Extract Otc 2 tab PO BID lamotrigine 25 mg tablet 25 mg PO DAILY Rx Instructions: STARTED 10/01/21 FOR 14 DAYS, THEN INCREASE TO BID. Discharge Orders: Discharge Order (Routine); Ordered 10/15/21 Ordered By: Edward Haskins Admission Data Admit Date/Time: 10/13/21 20:05 Attending Provider: Zoran Venegas Admit Provider: Musa Day Primary Care Provider: Breana Calixto Other Providers: Musa Day Other Interventions: Discharge Summary Assessment (RN) Last Done: 10/15/21 10:29 Supervising Physician Co-Signing Physician Notes I personally examined the patient and verified all hilario points of history and exam, discussed case, and agree with decision making with Dr Rodrigues. feeling better feeling up to go home Vitals noted, in general she is awake and alert pleasant no distress. HEENT normocephalic atraumatic mucous membranes moist. Breathing unlabored no accessory muscle use good effort. Skin shows no rashes no pallor or icterus. Neuro without focal deficits. Sepsis syndromewith constitutional symptoms, leukopenia/thrombocytopenia, and transaminitisthe pattern points heavily towards anaplasmosis.feeling better - safe/stable for home, presumptive dx anaplasmosis. empiric doxycycline (ADRs outlined) and PCP f/u - discussed that she should be feeling better slowly but steadily moving forward - and any worsening should prompt her to seek care sooner than already scheduled. Otherwise as above Resident Activity Tracking Resident Involvement: Resident Care Provided Care Provided: Adult Hospital Medicine
[2021-10-15 14:35] LABS: HBSAG NON-REACTIVE (NON-REACTIVE); Hepatitis A Antibody IgM NON-REACTIVE (NON-REACTIVE); Hepatitis B Core Antibody IgM NON-REACTIVE (NON-REACTIVE)
--- NOTE | 2021-10-15 17:49 | Billing Data ---
Date of Service October 15, 2021 Coding Level of Care Code D/C DAY MANAGEMENT <30 MINS
[2021-10-15 20:01] LABS: A calco-baum cmplx NotReported Not Detected (NotDetected); Bact fragilis Not Reported Not Detected (NotDetected); C auris Not Reported Not Detected (NotDetected); Calbicans Not Reported Not Detected (NotDetected); Candida glabrata Not Reported Not Detected (NotDetected); Candida krusei Not Reported Not Detected (NotDetected); Cneoformans/gatti Not Reported Not Detected (NotDetected); Cparapsilosis Not Reported Not Detected (NotDetected); Ctropicalis Not Reported Not Detected (NotDetected); E cloacae compx Not Reported Not Detected (NotDetected); Efaecalis Not Reported Not Detected (NotDetected); Efaecium Not Reported Not Detected (NotDetected); Enterobacterales Not Reported Not Detected (NotDetected); Escherichia coli Not Reported Not Detected (NotDetected); H influenzae Not Reported Not Detected (NotDetected); K aerogenes Not Reported Not Detected (NotDetected); Koxytoca Not Reported Not Detected (NotDetected); Kpneumoniae grp Not Reported Not Detected (NotDetected); Lmonocyt Not Reported Not Detected (NotDetected); N meningitidis Not Reported Not Detected (NotDetected); P aeruginosa Not Reported Not Detected (NotDetected); Proteus spp Not Reported Not Detected (NotDetected); Salmonella spp Not Reported Not Detected (NotDetected); Smarcescens Not Reported Not Detected (NotDetected); Staph lugdunensis Not Reported Not Detected (NotDetected); Staph spp. Not Reported Not Detected (NotDetected); Staphaureus Not Reported Not Detected (NotDetected); Staphepi Not Reported Not Detected (NotDetected); Stenmaltophilia Not Reported Not Detected (NotDetected); Strep agal(GrpB) Not Reported Not Detected (NotDetected); Strep pneum Not Reported Not Detected (NotDetected); Strep pyog (GrpA) Not Reported Not Detected (NotDetected); Strep spp Not Reported Not Detected (NotDetected)
[2021-10-21 01:06] LABS: Ehrlichia chaff DNA Bld Negative (Negative)
[2021-10-21 18:21] LABS: Babesia microti IgG <1:64 titer (<1:64)
[2021-10-22 21:37] LABS: Babesia microti DNA Not Detected (Not Detected); Ehrlichia chaff IgG Ab <1:64 (<1:64); Ehrlichia chaff IgM Ab <1:20 (<1:20)
== END 2021-10-15 10:51 | disposition home or self-care (01) | DRG 872 ==
LOC: ED 15:15 → EDINP 20:05 → SUATTDRO 20:05 → 2S 22:46 → 3W 10-14 20:59
DX: E87.1 Hypo-osmolality and hyponatremia; K31.84 Gastroparesis; K21.9 Gastro-esophageal reflux disease without esophagitis; Z79.890 Hormone replacement therapy; Z83.3 Family history of diabetes mellitus; Z88.5 Allergy status to narcotic agent; Z85.3 Personal history of malignant neoplasm of breast; Z88.8 Allergy status to other drugs, medicaments and biological substances; F32.A Depression, unspecified; E03.9 Hypothyroidism, unspecified; K52.9 Noninfective gastroenteritis and colitis, unspecified; Z88.0 Allergy status to penicillin; N17.9 Acute kidney failure, unspecified; Z98.1 Arthrodesis status; A77.49 Other ehrlichiosis; A41.89 Other specified sepsis

== ENCOUNTER 2023-09-27 12:11 | Inpatient (IN) ==
--- NOTE | 2023-09-27 12:31 | Emergency Department Note ---
Impression & Plan Gait instability, Expressive aphasia ED Provider Note NAME: RON CANADA AGE: 68 SEX: F : 1955 ARRIVES VIA: Walk-In INFORMANT: Patient, ED PROVIDER(S): Miguelito Mcdonald MD CHIEF COMPLAINT: Gait instability, expressive aphasia MEDICAL DECISION MAKING: Patient presents due to concern for gait instability and expressive aphasia which the patient believes to be positional in nature. The patient did have recent CT head and CT angiography of the head and neck. Patient did have some vertebral stenosis but no other acute concerning findings at that time. CT of the head was ordered along with blood work. Past Lyme's was negative. Blood work shows a normal white count H&H and platelet count. The patient's kidney function is unremarkable. Urinalysis without signs of blood or infection. Chest x-ray negative. The patient's CT of the head negative. Brain MRI was ordered with and without contrast. I did speak with the on-call hospital service Dr. Singh and the patient was admitted to the medicine service. Discussion w/ other healthcare providers: Dr. Singh inpatient medicine service Prior /Outside records reviewed: I reviewed a discharge summary from Dr. Anushka Steven from October 2021. Patient was admitted at that time due to concern for MARLA sepsis and anaplasmosis which was suspected. Patient does have a prior history of hypertension hypothyroidism PUD GERD gastroparesis migraines depression and rectal pouch. I reviewed a pain management procedure from Dr. Borden from September 20. The patient did have epidural steroid injection for history of lumbar radiculopathy at that time. This is at the L3-L4 interlaminar region. Differential diagnosis: Infection, dehydration, metabolic abnormality, hypo/hyperglycemia, electrolyte imbalance, anemia, UTI, pneumonia, thyroid dysfunction among others were considered. Diagnostics, as interpreted by me: ECG: Sinus bradycardia, rate of 59, normal intervals, normal axis no ST elevations. Possible Q waves anteriorly. Cardiac monitoring: An order was placed for continuous cardiac monitoring. The monitor shows a rate of 65 with sinus rhythm. Patient was placed on pulse oximetry Medical decision rules: None Imaging studies: I informally interpreted the patient's chest x-ray does not show obvious pneumonia or pneumothorax with formal report to follow. HPI: Patient presents due to concern for word finding difficulty and expressive aphasia which the patient states has gotten pretty bad since the beginning of this past week. The patient states that she was seen here on and diagnosed with vertigo and dehydration. Patient states that she has never had this pains but does have gait instability that seems to be positional in nature. If she stands or sits up after period of time she develops the symptoms and a difficult in addition to the word finding problem. Patient denies any prior history of stroke or mini stroke. No numbness tingling or focal weakness. Patient denies any slurred speech or facial droop. The patient states that she is able to understand speech and has never had an issue and has never had word salad. Patient states that she does drink 2 glasses of wine daily typically but has not done so since the time that she was seen on . Patient does have prior history of cervical to thoracic spine fusion that was completed several years ago at [place]. Patient does complain of pain at the eloina of the neck that radiates toward the skull base. Patient denies any falls or trauma. Patient denies blood thinner use. PAST MEDICAL HISTORY: See Below PAST SURGICAL HISTORY: See Below SOCIAL HISTORY: See Below HOME MEDICATIONS: See Below ALLERGIES: See Below VITALS: See Below PHYSICAL EXAMINATION: GENERAL: NAD, non-toxic. EYE EXAM: Normal conjunctiva. PERRL, no anisocoria and EOM's grossly intact w/o pain. OROPHARYNX: Moist mucus membranes, grossly normal dentition. NECK: Trachea midline, no stridor. Supple, no nuchal rigidity, no adenopathy, non-tender. No signs of meningismus. FROM of the neck with good chin to chest and neck extension. LUNGS: Clear to auscultation. Normal chest wall mechanics. HEART: NSR, no MRG. ABDOMEN: Abdomen soft, non-tender, no masses, no rebound or guarding. BACK: No CVA TTP. SKIN: No rashes and no bruising. UPPER EXTREMITIES: Upper extremities are grossly normal. LOWER EXTREMITIES: Grossly normal, no edema. NEURO EXAM: A&O x3, cranial nerves II-XII grossly intact, normal speech, moves all 4 extremities. Good finger-nose, no drift and no sensory deficits. Strength is normal bilaterally in the upper and lower extremities. No obvious truncal instability when sitting upright. Good [id number]. 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 Thoracic radiculopathy Spinal stenosis, lumbosacral region Pre-procedural laboratory examination Lumbar radiculopathy History of lumbar surgery L4-5 (2014) Lumbago Chronic thoracic back pain Paraspinal muscle spasm Myofascial pain Fusion of spine of cervicothoracic region C3-T3 Fusion of spine of cervical region Peptic ulcer disease HX Migraine HX Hypothyroidism Hypertension GERD (gastroesophageal reflux disease) Gastroparesis Depression Melena No chronic diseases present No significant past surgical history Encounter for pre-operative examination Eustachian tube dysfunction Medical History Acute hyponatremia Flu-like symptoms MARLA (acute kidney injury) Hypotension Elevated LFTs Hyponatremia Sepsis Acute kidney injury Diarrhea Abdominal pain Weight loss OVER THE LAST FEW YRS - [facility]LO[facility] NO FINDINGS Carpal tunnel syndrome Degenerative disc disease HX: breast cancer RIGHT > 2008 > NO CHEMO Surgical History History of neck surgery X 2 History of bunionectomy right History of bilateral tubal ligation Hx of foot surgery LEFT TO TOE History of discectomy LUMBAR FUSION Hx of neck surgery CAN'T LEAN HEAD BACK VERY FAR. > (HASNT HAD TROUBLE WITH ANESTHESIA THOUGH) History of colonoscopy History of esophagogastroduodenoscopy (EGD) Hx of lumpectomy R BREAST History of tonsillectomy Family History Grandmother (Maternal) Diabetes Father Cancer Family hx of colon cancer Social History Smoking Status: Never smoker Cigarettes Per Day: 10 YR AGO; Second Hand Exposure: No; Do You Dip or Chew Tobacco: No; Hx Alcohol Use: Yes Alcohol type: wine Hx Substance Use: Yes Last Used Substance: Hours (ago) Last Used Substance Other:: 09/26/23 evening Substance Use Type Other:: one dose every evening Preferred Language: B[place] Communication Ability: Effective Truck Spotter Required: No Beliefs That Will Affect Care: None Current Living Situation: Spouse current occupational status: retired Feels Safe at Home: Hesitant to Answer Safety Concerns: Feels Safe At This Time Assistive Devices: Contacts Assistive Devices Comment: right eye contact lens Allergies Allergies Allergy/AdvReac Type Severity Reaction Status Date / Time atenolol Allergy Intermediate RESTLESS Verified 09/27/23 14:51 nickel Allergy Intermediate MUST WEAR Verified 09/27/23 14:51 GOLD OR SILVER ONLY-RASH Penicillins Allergy Unknown A Verified 09/27/23 14:51 CHILD-UNKNOWN codeine AdvReac Intermediate "DEPRESSED Verified 09/27/23 14:51 CENTRAL NERVOUS SYSTEM" metoclopramide AdvReac Intermediate AGITATED Verified 09/27/23 14:51 Home Meds Home Medications Medication Instructions Recorded Confirmed Medical Marijuana 1 dose inhalation HS Pain 03/09/19 09/27/23 acyclovir 400 mg tablet 400 mg PO BID 03/09/19 09/27/23 amlodipine 10 mg tablet 10 mg PO PM 03/09/19 09/27/23 ascorbic acid (vitamin C) 500 mg 500 mg PO HS 03/09/19 09/27/23 tablet (Vitamin C) cholecalciferol (vitamin D3) 25 1,000 unit PO QAM 03/09/19 09/27/23 mcg (1,000 unit) chewable tablet (Vitamin D3) flurbiprofen 100 mg tablet 100 mg PO BID 03/09/19 09/27/23 glucosamine sulf dipot 1 cap PO BID 03/09/19 09/27/23 chlr,msm,chond 550 mg-C 30 mg-maciel 1 mg capsule (Glucosamine Chondroitin) levothyroxine 75 mcg tablet 75 mcg PO [id number] 03/09/19 09/27/23 (Synthroid) lisinopril 40 mg tablet 40 mg PO QPM 03/09/19 09/27/23 magnesium oxide 400 mg PO QAM 03/09/19 09/27/23 melatonin 5 mg tablet 5 mg PO HS 03/09/19 09/27/23 multivitamin 1 tab PO PM 03/09/19 09/27/23 nortriptyline 25 mg capsule 25 mg PO PM 03/09/19 09/27/23 potassium chloride 10 mEq 10 meq PO HS 03/09/19 09/27/23 capsule,extended release trazodone 100 mg tablet 100 mg PO HS 03/09/19 09/27/23 vitamin B complex-folic acid 0.4 1 tab PO QAM 03/09/19 09/27/23 mg tablet (Super B Maxi Complex) cranberry fruit 450 mg tablet 900 mg PO BID ##0 08/28/21 09/27/23 (cranberry) lamotrigine 25 mg tablet 25 mg PO DAILY 10/13/21 09/27/23 tenapanor 50 mg tablet (Ibsrela) 50 mg PO BID 04/15/23 09/27/23 gabapentin 300 mg capsule 300 mg PO BID 09/27/23 09/27/23 venlafaxine 150 mg 300 mg PO QAM 09/27/23 09/27/23 capsule,extended release 24 hr Previous Rx's Medication Instructions Recorded tramadol 50 mg tablet 50 mg PO Q6H PRN pain #60 tabs 04/15/23 baclofen 20 mg tablet 20 mg PO BID #60 tabs 09/21/23 ondansetron 4 mg disintegrating 4 mg PO Q6H PRN nausea and 09/22/23 tablet vomiting #14 tabs Results & Data (ED) Vital Signs Vital Signs - 24 hr 09/27/23 12:17 09/27/23 13:19 09/27/23 13:52 Temperature 36.8 C Temperature Source Oral Pulse Rate 68 66 60 Pulse Rate [Apical] Pulse Rhythm Regular Pulse Strength Normal Respiratory Rate 18 14 Respiratory Effort / Characteristics Non-Labored Respiratory Depth Normal Respiratory Pattern Regular Blood Pressure 181/91 H Blood Pressure [Right Arm] Blood Pressure Mean 121 Blood Pressure Mean [Right Arm] Pulse Oximetry 99 97 Oxygen Delivery Method Room Air Room Air Sepsis Recent Fever Within 48 Hours No Sepsis New/Unexplained Change in Mental Status No Sepsis Action Taken by Nursing No Action Required 09/27/23 14:20 09/27/23 16:00 Temperature Temperature Source Pulse Rate Pulse Rate [Apical] 80 74 Pulse Rhythm Pulse Strength Respiratory Rate 14 16 Respiratory Effort / Characteristics Non-Labored Spontaneous Respiratory Depth Normal Respiratory Pattern Blood Pressure Blood Pressure [Right Arm] 167/90 H 190/103 H Blood Pressure Mean Blood Pressure Mean [Right Arm] 115 132 Pulse Oximetry 96 97 Oxygen Delivery Method Room Air Room Air Sepsis Recent Fever Within 48 Hours Sepsis New/Unexplained Change in Mental Status Sepsis Action Taken by Assisted Medications Current Medication List: was personally reviewed by me Laboratory Data Attestation: I reviewed the patient's lab results. 09/27/23 13:33 09/27/23 13:33 Lab Results 09/27/23 09/27/23 Range/Units 13:33 14:50 WBC 6.77 (4.8-10.8) K/ul RBC 4.32 (4.20-5.40) M/uL Hgb 13.5 (12.0-16.0) g/dl Hct 39.7 (37.0-47.0) % MCV 91.9 (80.0-100.0) fL MCH 31.3 (25.0-34.0) pg MCHC 34.0 (32.0-36.0) g/dL RDW Std Deviation 45.3 (36.4-46.3) fL RDW Coeff of Kush 13.4 (11.5-14.5) % Plt Count 341 (130-400) K/uL MPV 9.6 (9.4-12.4) fL Immature Gran % (Auto) 0.3 % Neut % (Auto) 62.2 % Lymph % (Auto) 27.8 % [place] % (Auto) 7.8 % Eos % (Auto) 1.0 % Baso % (Auto) 0.9 % Neut # (Auto) 4.21 (1.40-6.50) K/uL Lymph # (Auto) 1.88 (1.20-3.40) K/uL [place] # (Auto) 0.53 (0.11-0.59) K/uL Eos # (Auto) 0.07 (0.00-0.50) K/uL Baso # (Auto) 0.06 (0.00-0.20) K/uL Immature Gran # (Auto) 0.02 (0.01-0.20) K/uL ESR 3 (0-30) mm/hr PT 10.6 (9.0-12.0) Seconds INR 1.0 (0.9-1.1) APTT 23 (21-31) Seconds PTT Ratio 0.9 Sodium 137 (136-145) mmol/L Potassium 3.7 (3.5-5.1) mmol/L Chloride 100 (98-107) mmol/L Carbon Dioxide 32 (21-32) mmol/L Anion Gap 5 (3-11) BUN 13 (6-23) mg/dl Creatinine 0.56 L (0.6-1.2) mg/dl Est Cr Clr Drug Dosing 67.1 ml/min Est GFR ( Amer) 109.5 ml/min Est GFR (Non-Af Amer) 94.5 ml/min BUN/Creatinine Ratio 23.2 H (10-20) Glucose 103 H (70-99(Fasting)) mg/dl Calcium 9.6 (8.6-10.3) mg/dl Magnesium 2.3 (1.7-2.4) mg/dl Total Bilirubin 0.2 (0.2-1.0) mg/dl AST 22 (13-39) U/L ALT 27 (7-52) U/L Alkaline Phosphatase 41 (34-104) U/L C-Reactive Protein < 0.50 (0-0.5) mg/dl Total Protein 6.7 (6.0-8.3) gm/dl Albumin 4.4 (3.4-5.0) gm/dl Globulin 2.3 L (2.5-4.0) gm/dl Albumin/Globulin Ratio 1.9 (0.9-2) TSH 2.412 (0.300-4.500) uIu/ml Urine Color Yellow Urine Appearance Clear (Clear) Urine pH 8.0 H (4.5-7.5) Ur Specific [place] 1.007 (1.000-1.030) Urine Protein Negative (Negative) Urine Glucose (UA) Negative (Negative) Urine Ketones Negative (Negative) Urine Blood Negative (Negative) Urine Nitrite Negative (Negative) Urine Bilirubin Negative (Negative) Urine Urobilinogen Negative (Negative) Ur Leukocyte Esterase Negative (Negative) Administered Medications Discontinued Medications Gadobutrol (Gadobutrol 65ml Vial) 4.8 ml IV ONCE ONE Stop: 09/27/23 17:05 Last Admin: 09/27/23 17:04 Dose: 4.8 ml Documented By: CARLO Imaging Data Radiologist's Impression: Chest X-Ray 09/27/23 12:35 XR chest 1V portable CLINICAL HISTORY: weakness TECHNIQUE: Single frontal radiograph of the chest was obtained. Comparison: Comparison is made to chest radiograph 09/22/2023 FINDINGS: No lines and tubes are seen. The cardiomediastinal silhouette is normal. The lungs are clear. No evidence of pleural effusion or pneumothorax. IMPRESSION: No acute chest disease. ACT 112: Negative or not required by law. Electronically signed by: Reinaldo Morales M.D. 09/27/2023 1:[address] 09/27/23 12:35 CT SCAN OF THE BRAIN WITHOUT IV CONTRAST CLINICAL HISTORY: Aphasia COMPARISON STUDY: CT of the brain dated 09/22/2023. TECHNIQUE: Unenhanced axial CT scan of the brain is performed from the vertex to the skull base. A dose lowering technique was utilized adhering to the principles of ALARA. CT DOSE: 547.75 mGy.cm FINDINGS: Brain parenchyma: There is age-related involutional change noting mild to moderate subcortical and periventricular microangiopathic disease. There is no hemorrhage, mass effect, or evidence of acute territorial ischemia by CT criteria. Bradley-white matter differentiation is preserved. No extra-axial fluid collection is seen. Ventricles, sulci, cisterns: Prominent secondary to involutional change. Intracranial vasculature: There is atherosclerotic calcification of the cavernous carotid and vertebral arteries. Calvarium: Unremarkable. Sinuses and mastoids: The visualized paranasal sinuses are clear. The mastoid air cells are well pneumatized. Orbits: The bony orbits are grossly intact. There are bilateral ocular lens implants. IMPRESSION: There is no hemorrhage, mass effect, or evidence of acute territorial ischemia by CT criteria. ACT 112: Negative or not required by law. Electronically signed by: Wale Ramsey M.D. 09/27/2023 1:46 PM Brain MRI 09/27/23 14:43 MR brain wo/w con CLINICAL HISTORY: expressive aphasia TECHNIQUE: Multiplanar and multisequence MR images of the brain were obtained prior to and following administration of gadolinium contrast. Comparison: Comparison is made to CT head 09/27/2023 FINDINGS: No abnormal restricted diffusion is identified. Foci of T2 and FLAIR hyperintensity are noted in the paraventricular areas consistent with chronic small vessel ischemic disease. Ex vacuo ventriculomegaly and sulcal enlargement is noted compatible with diffuse volume loss. No mass or abnormal enhancement is seen. There is no mass effect or midline shift. There is no evidence of acute intraparenchymal hemorrhage. No extra axial fluid collections are seen. The corpus callosum, pituitary gland, and cerebellar tonsils appear grossly unremarkable. Flow voids of the major intracranial arterial vessels are identified. The imaged portions of the paranasal sinuses, mastoid air cells, and orbits are unremarkable. IMPRESSION: No acute abnormality and in particular no evidence of acute infarct. ACT 112: Negative or not required by law. Electronically signed by: Reinaldo Morales M.D. 09/27/2023 5:17 PM Discharge Plan Visit Data Chief Complaint: Neck Injury/Pain Stated Complaint: NEROLOGICAL SYMPTOMS ED Provider: Miguelito Mcdonald Discharge Problem: Gait instability, Expressive aphasia Patient Disposition: Admitted As Inpatient Discharge Instructions Interventions: ED Discharge Assessment Last Done: 09/27/23 17:50
--- NOTE | 2023-09-27 13:02 | XRay Report ---
XR chest 1V portable CLINICAL HISTORY: weakness TECHNIQUE: Single frontal radiograph of the chest was obtained. Comparison: Comparison is made to chest radiograph 09/22/2023 FINDINGS: No lines and tubes are seen. The cardiomediastinal silhouette is normal. The lungs are clear. No evid ence of pleural effusion or pneumothorax. IMPRESSION: No acute chest disease. ACT 112: Negative or not required by law. Electronically signed by: Reinaldo Morales M.D. 09/27/2023 1:00 PM
--- NOTE | 2023-09-27 13:38 | Electrocardiogram Report ---
Test Reason : Blood Pressure : / mmHG Vent. Rate : 059 BPM Atrial Rate : 059 BPM P-R Int : 124 ms QRS Dur : 090 ms QT Int : 386 ms P-R-T Axes : 041 001 043 degrees QTc Int : 382 ms Sinus bradycardia Poor R wave progression, consider anterior AR vs. lead placement vs. LVH Abnormal ECG When compared with ECG of 22-SEP-2023 13:32, Criteria for Inferior infarct are no longer Present T wave inversion now evident in Anterior leads Confirmed by Nadir Burns ([id number]) on 09/27/2023 1:38:16 PM Referred By: Confirmed By:Nadir Burns
--- NOTE | 2023-09-27 13:47 | CT Scan Report ---
CT SCAN OF THE BRAIN WITHOUT IV CONTRAST CLINICAL HISTORY: Aphasia COMPARISON STUDY: CT of the brain dated 09/22/2023. TECHNIQUE: Unenhanced axial CT scan of the brain is performed from the vertex to the skull base. A do se lowering technique was utilized adhering to the principles of ALARA. CT DOSE: 547.75 mGy.cm FINDINGS: Brain parenchyma: There is age-related involutional change noting mild to moderate subcortical and pe riventricular microangiopathic disease. There is no hemorrhage, mass effect, or evidence of acute ter ritorial ischemia by CT criteria. Bradley-white matter differentiation is preserved. No extra-axial flui d collection is seen. Ventricles, sulci, cisterns: Prominent secondary to involutional change. Intracranial vasculature: There is atherosclerotic calcification of the cavernous carotid and vertebr al arteries. Calvarium: Unremarkable. Sinuses and mastoids: The visualized paranasal sinuses are clear. The mastoid air cells are well pneu matized. Orbits: The bony orbits are grossly intact. There are bilateral ocular lens implants. IMPRESSION: There is no hemorrhage, mass effect, or evidence of acute territorial ischemia by CT yuri sheridan. ACT 112: Negative or not required by law. Electronically signed by: Wale Ramsey M.D. 09/27/2023 1:46 PM
[2023-09-27 14:04] LABS: Basophils # (auto) 0.06 K/uL (0.00-0.20); Basophils % (auto) 0.9 %; Eosinophils # (auto) 0.07 K/uL (0.00-0.50); Hematocrit (blood only) 39.7 % (37.0-47.0); Hemoglobin 13.5 g/dl (12.0-16.0); Immature Granulocytes # (auto) 0.02 K/uL (0.01-0.20); Immature Granulocytes % (auto) 0.3 %; Lymphocytes # (auto) 1.88 K/uL (1.20-3.40); Lymphocytes % (auto) 27.8 %; Mean Corpuscular Hemoglobin 31.3 pg (25.0-34.0); Mean Corpuscular Volume 91.9 fL (80.0-100.0); Mean Platelet Volume 9.6 fL (9.4-12.4); Monocytes # (auto) 0.53 K/uL (0.11-0.59); Monocytes % (auto) 7.8 %; Neutrophils # (auto) 4.21 K/uL (1.40-6.50); Neutrophils % (auto) 62.2 %; Platelet Count 341 K/uL (130-400); RDW Coefficient of Variation 13.4 % (11.5-14.5); RDW Standard Deviation 45.3 fL (36.4-46.3); Red Blood Count 4.32 M/uL (4.20-5.40); White Blood Count 6.77 K/ul (4.8-10.8)
[2023-09-27 14:25] LABS: Alanine Aminotransferase 27 U/L (7-52); Albumin Globulin Ratio 1.9 (0.9-2); Albumin Level 4.4 gm/dl (3.4-5.0); Alkaline Phosphatase 41 U/L (34-104); Anion Gap 5 (3-11); Aspartate Aminotransferase 22 U/L (13-39); BUN Creatinine Ratio 23.2 (10-20); Bilirubin,Total 0.2 mg/dl (0.2-1.0); Blood Urea Nitrogen 13 mg/dl (6-23); Calcium 9.6 mg/dl (8.6-10.3); Carbon Dioxide 32 mmol/L (21-32); Chloride 100 mmol/L (98-107); Creatinine Clr Calc Pharmacy 67.1 ml/min; Est GFR (African American) 109.5 ml/min; Est GFR (Non-African American) 94.5 ml/min; Globulin 2.3 gm/dl (2.5-4.0); Glucose 103 mg/dl (70-99(Fasting)); Magnesium 2.3 mg/dl (1.7-2.4); Potassium 3.7 mmol/L (3.5-5.1); Sodium 137 mmol/L (136-145); Total Protein 6.7 gm/dl (6.0-8.3)
[2023-09-27 14:30] LABS: Partial Thromboplastin Ratio 0.9; Partial Thromboplastin Time 23 Seconds (21-31); Prothrombin Time 10.6 Seconds (9.0-12.0)
[2023-09-27 14:39] LABS: Thyroid Stimulating Hormone 2.412 uIu/ml (0.300-4.500)
[2023-09-27 15:15] LABS: Appearance Urine Clear (Clear); Bilirubin Urine Negative (Negative); Blood Urine Negative (Negative); Color Urine Yellow; Glucose Urine UA Negative (Negative); Ketones Urine Negative (Negative); Leukocyte Esterase Urine Negative (Negative); Nitrite Urine Negative (Negative); Protein Urine Negative (Negative); Specific Gravity Urine 1.007 (1.000-1.030); Urobilinogen Urine Negative (Negative)
--- NOTE | 2023-09-27 15:16 | History & Physical Report ---
Date of Service September 27, 2023 Assessment & Plan (1) Expressive aphasia: Plan: Worsening expressive aphasia, visual changes, headaches, and neck pain x 1 week Clinically, patient denies any strokelike symptoms or loss of vision Patient was seen at [facility] on 09/21 and received steroids, which patient reports helped significantly Moderate focal stenosis at origin of left vertebral artery on neck CTA at this time; otherwise negative imaging Head CT on 09/26 revealed no acute findings CRP and ESR ordered, pending Brain MRI with and without contrast ordered, pending Consider MRI cervical spine if refractory Unclear etiology; at this time DDx includes CVA, MS, PMR/GCA, vertigo, brain lesion, medication associated brain fog, adrenal insufficiency, or acute on chronic exacerbation of cervical pain, among other etiologies Neurology consulted A.m. CBC, BMP, mag, cortisol level (2) Neck pain: Plan: Acute on chronic worsening of her bilateral neck pain Patient does follow with pain management clinic Continue gabapentin and trazodone Tramadol as needed (3) Fusion of spine of cervical region: Plan: Fusion of C3-T3 4 years ago, but no prior issues like this one Plan Disposition: Admit to PCU telemetry Full code Regular diet VTE PPx: Lovenox 40mg SQ q24h History of Present Illness Chief Complaint: Neck pain and cognitive deficits Primary Care Provider: Breana Calixto MD [place] is a pleasant 68-year-old female with PMH of cervical spine fusion, migraines, hypothyroidism, HTN, GERD, gastroparesis, depression, lumbar r adiculopathy, and peptic ulcer disease. She presented on 09/26 for worsening neck pain and expressive aphasia that began last week. Patient went to the ED on 09/21 and was given steroids, which she reports helped significantly. She was then discharged on a 4-day course of oral prednisone, which she reported helped significantly. She has also been drinking more fluids to stay hydrated. However her symptoms, which she describes as neurological, have returned. She reports that whenever she stands up vertically for more than 10 minutes, she has "increased pressure" at the base of her skull and she is unable to do any critical thinking or executive processing. When she lays down, this slowly resolves. She is also having significant neck pain with any sort of twisting motion. She denies any recent trauma or injuries to the head or neck. She has been wearing a cervical spine collar at home due to this significant pain. The pain in her neck is bilateral, and she describes it as an intermittent, dull, pressure-like pain; she rates it 5/10 at present, and 7/10 at worst. She has not been taking any pain medicine at home with it. Worse with movements. No radiation to the shoulders. No pain in the ears. She does have a history of a C3 to T3 spinal infusion 4 years ago, but she has never had problems like this before. She also notes a history of migraines, but these w ere away after menopause. She has been having pain behind her eyes and visual disturbances that accompany standing. She describes it as an "inability to track properly" with her eyes. No loss of vision, double vision, or blurry vision. She denies any PMH of stroke or strokelike symptoms such as slurred speech, unilateral deficits, or facial droop. No history of seizures, MS, PMR, or giant arteritis to her knowledge. She does have history of vertigo once a long time ago, but she is denying any recent dizziness. She took all regular morning medications today; no recent change in medications besides the steroid taper. Patient is currently on acyclovir for history of lip sores. She did have a tick bite on her lower leg 2 to 3 weeks ago. She does endorse medical marijuana use, and alcohol use (2 to 3 glasses of wine every evening, but she quit last after her symptoms worsened). Patient is hypertensive 167/90 at time of admission; vitals otherwise stable. ED course: ROS: Patient endorses thermoregulatory problems (cold/heat intolerance), bilateral neck pain, QUINTANILLA, vision changes when standing (difficulty tracking), ringing in ears two weeks ago (resolved), expressive aphasia, dry cough, nausea (which patient attributes to steroids), and intermittent cold and tingling arms and fingers. Patient denies fever, chills, night-sweats, dizziness/lightheadedness with stand ing (but notes she feels like she might "collapse" from pressure in her head), loss of vision, pain in ears, facial droop, slurred speech, unilateral deficits, chest pain, SOB, abdominal pain, vomiting, diarrhea, saddle anesthesia, change in urinary/bowel habits, or burning with urination. Allergies Allergy/AdvReac Type Severity Reaction Status Date / Time atenolol Allergy Intermediate RESTLESS Verified 09/27/23 14:51 nickel Allergy Intermediate MUST WEAR Verified 09/27/23 14:51 GOLD OR SILVER ONLY-RASH Penicillins Allergy Unknown A Verified 09/27/23 14:51 CHILD-UNKNOWN codeine AdvReac Intermediate "DEPRESSED Verified 09/27/23 14:51 CENTRAL NERVOUS SYSTEM" metoclopramide AdvReac Intermediate AGITATED Verified 09/27/23 14:51 lactose AdvReac Gastrointestinal Verified 09/28/23 10:24 Upset onion AdvReac Gastrointestinal Verified 09/28/23 10:24 Upset Home Medications Medication Instructions Recorded Confirmed Type Medical Marijuana 1 dose inhalation HS Pain 03/09/19 09/27/23 History acyclovir 400 mg tablet 400 mg PO BID 03/09/19 09/27/23 History amlodipine 10 mg tablet 10 mg PO PM 03/09/19 09/27/23 History ascorbic acid (vitamin C) 500 mg 500 mg PO HS 03/09/19 09/27/23 History tablet (Vitamin C) cholecalciferol (vitamin D3) 25 1,000 unit PO QAM 03/09/19 09/27/23 History mcg (1,000 unit) chewable tablet (Vitamin D3) flurbiprofen 100 mg tablet 100 mg PO BID 03/09/19 09/27/23 History glucosamine sulf dipot 1 cap PO BID 03/09/19 09/27/23 History chlr,msm,chond 550 mg-C 30 mg-maciel 1 mg capsule (Glucosamine Chondroitin) levothyroxine 75 mcg tablet 75 mcg PO 6XWK 03/09/19 09/27/23 History (Synthroid) lisinopril 40 mg tablet 40 mg PO QPM 03/09/19 09/27/23 History magnesium oxide 400 mg PO QAM 03/09/19 09/27/23 History melatonin 5 mg tablet 5 mg PO HS 03/09/19 09/27/23 History multivitamin 1 tab PO PM 03/09/19 09/27/23 History nortriptyline 25 mg capsule 25 mg PO PM 03/09/19 09/27/23 History potassium chloride 10 mEq 10 meq PO HS 03/09/19 09/27/23 History capsule,extended release trazodone 100 mg tablet 100 mg PO HS 03/09/19 09/27/23 History vitamin B complex-folic acid 0.4 1 tab PO QAM 03/09/19 09/27/23 History mg tablet (Super B Maxi Complex) cranberry fruit 450 mg tablet 900 mg PO BID ##0 08/28/21 09/27/23 History (cranberry) lamotrigine 25 mg tablet 25 mg PO DAILY 10/13/21 09/27/23 History tenapanor 50 mg tablet (Ibsrela) 50 mg PO BID 04/15/23 09/27/23 History tramadol 50 mg tablet 50 mg PO Q6H PRN pain #60 tabs 04/15/23 09/27/23 Rx baclofen 20 mg tablet 20 mg PO BID #60 tabs 09/21/23 09/27/23 Rx ondansetron 4 mg disintegrating 4 mg PO Q6H PRN nausea and 09/22/23 09/27/23 Rx tablet vomiting #14 tabs gabapentin 300 mg capsule 300 mg PO BID 09/27/23 09/27/23 History venlafaxine 150 mg 300 mg PO QAM 09/27/23 09/27/23 History capsule,extended release 24 hr Past Med/Surg History Problem List (Updated 09/29/23 @ 10:25 by Rick Cunningham MD) Diplopia Orthostatic hypotension Abnormal cortisol level Speech disturbance Expressive aphasia (Acute) Gait instability (Acute) Neck pain Expressive aphasia Brain fog (Acute) Dehydration (Acute) Vertigo (Acute) 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 Thoracic radiculopathy Spinal stenosis, lumbosacral region Pre-procedural laboratory examination Lumbar radiculopathy History of lumbar surgery L4-5 (2014) Lumbago Chronic thoracic back pain Paraspinal muscle spasm Myofascial pain Fusion of spine of cervicothoracic region C3-T3 Fusion of spine of cervical region Peptic ulcer disease HX Migraine HX Hypothyroidism Hypertension GERD (gastroesophageal reflux disease) Gastroparesis Depression Melena No chronic diseases present No significant past surgical history Encounter for pre-operative examination Eustachian tube dysfunction Medical History Acute hyponatremia Flu-like symptoms MARLA (acute kidney injury) Hypotension Elevated LFTs Hyponatremia Sepsis Acute kidney injury Diarrhea Abdominal pain Weight loss OVER THE LAST FEW YRS - BLOOD [facility]) NO FINDINGS Carpal tunnel syndrome Degenerative disc disease HX: breast cancer RIGHT > 2008 > NO CHEMO Surgical History History of neck surgery X 2 History of bunionectomy right History of bilateral tubal ligation Hx of foot surgery LEFT TO TOE History of discectomy LUMBAR FUSION Hx of neck surgery CAN'T LEAN HEAD BACK VERY FAR. > (HASNT HAD TROUBLE WITH ANESTHESIA THOUGH) History of colonoscopy History of esophagogastroduodenoscopy (EGD) Hx of lumpectomy R BREAST History of tonsillectomy Family History Grandmother (Maternal) Diabetes Father Cancer Family hx of colon cancer Social History Smoking Status: Never smoker Cigarettes Per Day: 10 YR AGO; Second Hand Exposure: No; Do You Dip or Chew Tobacco: No; Hx Alcohol Use: Yes Alcohol type: wine Hx Substance Use: Yes Last Used Substance: Hours (ago) Last Used Substance Other:: 09/26/23 evening Substance Use Type Other:: one dose every evening Preferred Language: Andorran Communication Ability: Effective 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 Beliefs That Will Affect Care: None Current Living Situation: Spouse current occupational status: retired Feels Safe at Home: Hesitant to Answer Assistive Devices: Cane, Walker and Other Review of Systems Review of Systems: See HPI above Physical Exam Physical Exam: General: no acute distress; pleasant affect; non-toxic appearing; well- nourished; cooperative; SpO2 96% on RA HEENT: normocephalic, atraumatic; no scleral icterus; PERRLA w/ EOMs intact; moist mucus membrane; vision and hearing grossly intact; patient demonstrates ability to smile and lift eyebrows without unilateral deficits Neck: supple; positive for left-sided JVP; no lymphadenopathy; trachea midline; patient demonstrates ability to shrug shoulders against resistance without pain; however, slight rotation of the neck in either direction elicits significant pain Skin: warm, dry without signs of tenting; no cyanosis; no rashes, bruising, lesions, or erythema noted CV: chest wall NTP; RRR; S1/S2 normal; no murmurs/rubs/gallops; bounding pulses intact and symmetric at radial, DP, and PT Lungs: no acute respiratory distress; symmetrical chest wall expansion; clear breath sounds across all lung zhao w/o adventitious sounds; no wheezing ABD: Soft, NTP; BS present; no rebound/guarding; no distention MSK: no tics or fasciculations; no edema noted in the LEs b/l, nonerythematous Neuro: A&Ox3; slow, paused speech when talking that requires her to close her eyes; negative facial droop; negative for slurred speech; negative pronator drift; sensation grossly intact in the face/UEs/LEs b/l Results & Data Results & Data Vital Signs (Past 12 Hours) Vital Signs Temp Pulse Pulse Resp BP BP Pulse Ox 09/27/23 14:20 800 H 14 167/90 H 96 09/27/23 13:52 60 14 97 09/27/23 13:19 66 09/27/23 12:17 36.8 C 68 18 181/91 H 99 O2 Del Method 09/27/23 14:20 Room Air 09/27/23 13:52 Room Air 09/27/23 13:19 09/27/23 12:17 Room Air Laboratory Results Abnormal lab results 09/27/23 09/27/23 Range/Units 13:33 14:50 Creatinine 0.56 L (0.6-1.2) mg/dl BUN/Creatinine Ratio 23.2 H (10-20) Glucose 103 H (70-99(Fasting)) mg/dl Globulin 2.3 L (2.5-4.0) gm/dl Urine pH 8.0 H (4.5-7.5) Diagnostic Findings Chest X-Ray 09/27/23 12:35 XR chest 1V portable CLINICAL HISTORY: weakness TECHNIQUE: Single frontal radiograph of the chest was obtained. Comparison: Comparison is made to chest radiograph 09/22/2023 FINDINGS: No lines and tubes are seen. The cardiomediastinal silhouette is normal. The lungs are clear. No evidence of pleural effusion or pneumothorax. IMPRESSION: No acute chest disease. ACT 112: Negative or not required by law. Electronically signed by: Reinaldo Morales M.D. 09/27/2023 1:[address] 09/27/23 12:35 CT SCAN OF THE BRAIN WITHOUT IV CONTRAST CLINICAL HISTORY: Aphasia COMPARISON STUDY: CT of the brain dated 09/22/2023. TECHNIQUE: Unenhanced axial CT scan of the brain is performed from the vertex to the skull base. A dose lowering technique was utilized adhering to the principles of ALARA. CT DOSE: 547.75 mGy.cm FINDINGS: Brain parenchyma: There is age-related involutional change noting mild to moderate subcortical and periventricular microangiopathic disease. There is no hemorrhage, mass effect, or evidence of acute territorial ischemia by CT criteria. Bradley-white matter differentiation is preserved. No extra-axial fluid collection is seen. Ventricles, sulci, cisterns: Prominent secondary to involutional change. Intracranial vasculature: There is atherosclerotic calcification of the cavernous carotid and vertebral arteries. Calvarium: Unremarkable. Sinuses and mastoids: The visualized paranasal sinuses are clear. The mastoid air cells are well pneumatized. Orbits: The bony orbits are grossly intact. There are bilateral ocular lens implants. IMPRESSION: There is no hemorrhage, mass effect, or evidence of acute territorial ischemia by CT criteria. ACT 112: Negative or not required by law. Electronically signed by: Wale Ramsey M.D. 09/27/2023 1:46 PM Supervising Physician Co-Signing Physician Notes I personally saw and examined the patient. I independently reviewed the labs, EKG, imaging, problem list, medication list, past medical history and family history. I verified all hilario points and agree with Yoni Cooley PA-C with the following exceptions and/or additions: 68 year old female who presents to the ER with multiple symptoms of brain fog, difficulty findings the right words, fatigue. She reports hypertension when she lies down. Symptoms worse when standing up for a long time but persist while lying down. Progressive over months but much worse the last week. She was seen in the ER on for the same symptoms. O/E HS RRR, no murmurs, Chest CTAB, Abdo SNT, no extremity weakness or change in sensation, no pronatory drift, some difficulty coming up with occasional words but mostly fluent speech, no central or paraspinal pain on palpation, no CVA tenderness A/P Multiple neurological symptoms - certainly medications could be playing a part but she self reduced her newest medications (gabapentin and baclofen) without improvement (actually became worse during that time) goes against this. Complete resolution with steroids is odd but will consider adrenal insufficiency and will take a morning AM cortisol PG Care Time/CCT Total # of Minutes Spent Total Time Spent with Patient: Total time spent is greater than 50% in coordination of care (as documented) at patient's floor/unit and/or counseling patient: Coding [place] [address] INT INP/OBS CARE 3/75MIN Patient Type Established Medical Decision Making High Complexity Diagnoses Expressive aphasia R47.01 Neck pain M54.2 Fusion of spine of cervical region M43.22
[2023-09-27 15:51] LABS: C Reactive Protein < 0.50 mg/dl (0-0.5)
[2023-09-27] MEDS: GADOBUTROL 65ML VIAL IV ONE (17:04)
--- NOTE | 2023-09-27 17:19 | Magnetic Resonance Report ---
MR brain wo/w con CLINICAL HISTORY: expressive aphasia TECHNIQUE: Multiplanar and multisequence MR images of the brain were obtained prior to and following administration of gadolinium contrast. Comparison: Comparison is made to CT head 09/27/2023 FINDINGS: No abnormal restricted diffusion is identified. Foci of T2 and FLAIR hyperintensity are noted in the paraventricular areas consistent with chronic small vessel ischemic disease. Ex vacuo ventriculomegal y and sulcal enlargement is noted compatible with diffuse volume loss. No mass or abnormal enhancemen t is seen. There is no mass effect or midline shift. There is no evidence of acute intraparenchymal h emorrhage. No extra axial fluid collections are seen. The corpus callosum, pituitary gland, and cereb ellar tonsils appear grossly unremarkable. Flow voids of the major intracranial arterial vessels are identified. The imaged portions of the para nasal sinuses, mastoid air cells, and orbits are unremarkable. IMPRESSION: No acute abnormality and in particular no evidence of acute infarct. ACT 112: Negative or not required by law. Electronically signed by: Reinaldo Morales M.D. 09/27/2023 5:17 PM
[2023-09-27] MEDS ORDERED: traMADol HCL 50 MG TABLET PO PRN (18:40)
[2023-09-27] MEDS ORDERED: ONDANSETRON INJ 2 MG/ML 2 ML VIAL IV PRN (18:40)
[2023-09-27] MEDS: MELATONIN 3 MG TAB PO SCH (20:21)
[2023-09-27] MEDS: ACYCLOVIR 400 MG TAB PO SCH (20:21)
[2023-09-27] MEDS: GABAPENTIN 300 MG CAP PO SCH (20:21)
[2023-09-27] MEDS: BACLOFEN 20 MG TAB PO SCH (20:21)
[2023-09-27] MEDS: NORTRIPTYLINE HCL 25 MG CAP PO SCH (20:21)
[2023-09-27] MEDS: amLODIPine BESYLATE 5 MG TAB PO SCH (20:21)
[2023-09-27] MEDS: POTASSIUM CHLORIDE 10 MEQ TABCR PO SCH (20:21)
[2023-09-27] MEDS: traZODone HCL 100 MG TAB PO SCH (20:21)
[2023-09-27] MEDS: lisinopril 40 MG TAB PO SCH (20:22)
[2023-09-27] MEDS: ENOXAPARIN INJ 30 MG/0.3 ML SYR SQ SCH (20:22)
[2023-09-28] MEDS: LEVOTHYROXINE SODIUM 75 MCG TABLET PO SCH (05:53)
[2023-09-28 07:38] LABS: Basophils # (auto) 0.06 K/uL (0.00-0.20); Basophils % (auto) 0.8 %; Eosinophils # (auto) 0.16 K/uL (0.00-0.50); Eosinophils % (auto) 2.3 %; Hematocrit (blood only) 40.2 % (37.0-47.0); Hemoglobin 13.7 g/dl (12.0-16.0); Immature Granulocytes # (auto) 0.02 K/uL (0.01-0.20); Immature Granulocytes % (auto) 0.3 %; Lymphocytes # (auto) 2.35 K/uL (1.20-3.40); Lymphocytes % (auto) 33.3 %; Mean Corpuscular Hemoglobin 31.6 pg (25.0-34.0); Mean Corpuscular Hgb Conc 34.1 g/dL (32.0-36.0); Mean Corpuscular Volume 92.8 fL (80.0-100.0); Mean Platelet Volume 9.5 fL (9.4-12.4); Monocytes # (auto) 0.61 K/uL (0.11-0.59); Monocytes % (auto) 8.6 %; Neutrophils # (auto) 3.86 K/uL (1.40-6.50); Neutrophils % (auto) 54.7 %; Platelet Count 336 K/uL (130-400); RDW Coefficient of Variation 13.7 % (11.5-14.5); RDW Standard Deviation 46.5 fL (36.4-46.3); Red Blood Count 4.33 M/uL (4.20-5.40); White Blood Count 7.06 K/ul (4.8-10.8)
[2023-09-28] MEDS: MAGNESIUM OXIDE 400 MG TAB PO SCH (07:52)
[2023-09-28] MEDS: lamoTRIgine 25 MG TAB PO SCH (07:52)
[2023-09-28] MEDS: VENLAFAXINE HCL XR 150 MG CAPXR PO SCH (07:52)
[2023-09-28 07:57] LABS: BUN Creatinine Ratio 32.3 (10-20); Calcium 9.3 mg/dl (8.6-10.3); Creatinine Clr Calc Pharmacy 59.3 ml/min; Est GFR (African American) 105.9 ml/min; Est GFR (Non-African American) 91.4 ml/min; Magnesium 2.3 mg/dl (1.7-2.4); Potassium 3.9 mmol/L (3.5-5.1)
[2023-09-28] MEDS: ACETAMINOPHEN 325 MG TAB PO PRN (07:57)
[2023-09-28] MEDS: SODIUM CHLORIDE 0.9% 500 ML IV ONE (10:04)
--- NOTE | 2023-09-28 10:10 | Neurology Consultation ---
Date of Consultation September 28, 2023 Assessment & Plan (1) Speech disturbance: History of Present Illness Attending Physician: Rick Cunningham MD History of Present Illness pt with now resolved speech issue. she apparently started to have speech change about a week ago associated with her brain feeling foggy and worse with when she is anxious or stressed. mri brain negative. this morning her speech was back to baseline. no aphasia. chart reviewed. admission HPI: Everett is a pleasant 68-year-old female with PMH of cervical spine fusion, migraines, hypothyroidism, HTN, GERD, gastroparesis, depression, lumbar radiculopathy, and peptic ulcer disease. She presented on 09/26 for worsening neck pain and expressive aphasia that began last week. Patient went to the ED on 09/21 and was given steroids, which she reports helped significantly. She was then discharged on a 4-day course of oral prednisone, which she reported helped significantly. She has also been drinking more fluids to stay hydrated. However her symptoms, which she describes as neurological, have returned. She reports that whenever she stands up vertically for more than 10 minutes, she has "increased pressure" at the base of her skull and she is unable to do any critical thinking or executive processing. When she lays down, this slowly resolves. She is also having significant neck pain with any sort of twisting motion. She denies any recent trauma or injuries to the head or neck. She has been wearing a cervical spine collar at home due to this significant pain. The pain in her neck is bilateral, and she describes it as an intermittent, dull, pressure-like pain; she rates it 5/10 at present, and 7/10 at worst. She has not been taking any pain medicine at home with it. Worse with movements. No radiation to the shoulders. No pain in the ears. She does have a history of a C3 to T3 spinal infusion 4 years ago, but she has never had problems like this before. She also notes a history of migraines, but these were away after menopause. She has been having pain behind her eyes and visual disturbances that accompany standing. She describes it as an "inability to track properly" with her eyes. No loss of vision, double vision, or blurry vision. She denies any PMH of stroke or strokelike symptoms such as slurred speech, unilateral deficits, or facial droop. No history of seizures, MS, PMR, or giant arteritis to her knowledge. She does have history of vertigo once a long time ago, but she is denying any recent dizziness. She took all regular morning medications today; no recent change in medications besides the steroid taper. Patient is currently on acyclovir for history of lip sores. She did have a tick bite on her lower leg 2 to 3 weeks ago. She does endorse medical marijuana use, and alcohol use (2 to 3 glasses of wine every evening, but she quit last after her symptoms worsened). Patient is hypertensive 167/90 at time of admission; vitals otherwise stable. Allergies Allergy/AdvReac Type Severity Reaction Status Date / Time atenolol Allergy Intermediate RESTLESS Verified 09/27/23 14:51 nickel Allergy Intermediate MUST WEAR Verified 09/27/23 14:51 GOLD OR SILVER ONLY-RASH Penicillins Allergy Unknown A Verified 09/27/23 14:51 CHILD-UNKNOWN codeine AdvReac Intermediate "DEPRESSED Verified 09/27/23 14:51 CENTRAL NERVOUS SYSTEM" metoclopramide AdvReac Intermediate AGITATED Verified 09/27/23 14:51 Home Medications Medication Instructions Recorded Confirmed Type Medical Marijuana 1 dose inhalation HS Pain 03/09/19 09/27/23 History acyclovir 400 mg tablet 400 mg PO BID 03/09/19 09/27/23 History amlodipine 10 mg tablet 10 mg PO PM 03/09/19 09/27/23 History ascorbic acid (vitamin C) 500 mg 500 mg PO HS 03/09/19 09/27/23 History tablet (Vitamin C) cholecalciferol (vitamin D3) 25 1,000 unit PO QAM 03/09/19 09/27/23 History mcg (1,000 unit) chewable tablet (Vitamin D3) flurbiprofen 100 mg tablet 100 mg PO BID 03/09/19 09/27/23 History glucosamine sulf dipot 1 cap PO BID 03/09/19 09/27/23 History chlr,msm,chond 550 mg-C 30 mg-maciel 1 mg capsule (Glucosamine Chondroitin) levothyroxine 75 mcg tablet 75 mcg PO 6XWK 03/09/19 09/27/23 History (Synthroid) lisinopril 40 mg tablet 40 mg PO QPM 03/09/19 09/27/23 History magnesium oxide 400 mg PO QAM 03/09/19 09/27/23 History melatonin 5 mg tablet 5 mg PO HS 03/09/19 09/27/23 History multivitamin 1 tab PO PM 03/09/19 09/27/23 History nortriptyline 25 mg capsule 25 mg PO PM 03/09/19 09/27/23 History potassium chloride 10 mEq 10 meq PO HS 03/09/19 09/27/23 History capsule,extended release trazodone 100 mg tablet 100 mg PO HS 03/09/19 09/27/23 History vitamin B complex-folic acid 0.4 1 tab PO QAM 03/09/19 09/27/23 History mg tablet (Super B Maxi Complex) cranberry fruit 450 mg tablet 900 mg PO BID ##0 08/28/21 09/27/23 History (cranberry) lamotrigine 25 mg tablet 25 mg PO DAILY 10/13/21 09/27/23 History tenapanor 50 mg tablet (Ibsrela) 50 mg PO BID 04/15/23 09/27/23 History tramadol 50 mg tablet 50 mg PO Q6H PRN pain #60 tabs 04/15/23 09/27/23 Rx baclofen 20 mg tablet 20 mg PO BID #60 tabs 09/21/23 09/27/23 Rx ondansetron 4 mg disintegrating 4 mg PO Q6H PRN nausea and 09/22/23 09/27/23 Rx tablet vomiting #14 tabs gabapentin 300 mg capsule 300 mg PO BID 09/27/23 09/27/23 History venlafaxine 150 mg 300 mg PO QAM 09/27/23 09/27/23 History capsule,extended release 24 hr Patient History Medical History Acute hyponatremia Flu-like symptoms MARLA (acute kidney injury) Hypotension Elevated LFTs Hyponatremia Sepsis Acute kidney injury Diarrhea Abdominal pain Weight loss OVER THE LAST FEW YRS - BLOOD WORK AT [facility] [employer] NO FINDINGS Carpal tunnel syndrome Degenerative disc disease HX: breast cancer RIGHT > 2007 > NO CHEMO Surgical History History of neck surgery X 2 History of bunionectomy right History of bilateral tubal ligation Hx of foot surgery LEFT TO TOE History of discectomy LUMBAR FUSION Hx of neck surgery CAN'T LEAN HEAD BACK VERY FAR. > (HASNT HAD TROUBLE WITH ANESTHESIA THOUGH) History of colonoscopy History of esophagogastroduodenoscopy (EGD) Hx of lumpectomy R BREAST History of tonsillectomy Family History Grandmother (Maternal) Diabetes Father Cancer Family hx of colon cancer Social History Smoking Status: Never smoker Cigarettes Per Day: 10 YR AGO; Second Hand Exposure: No; Do You Dip or Chew Tobacco: No; Hx Alcohol Use: Yes Alcohol type: wine Hx Substance Use: Yes Last Used Substance: Hours (ago) Last Used Substance Other:: 09/26/23 evening Substance Use Type Other:: one dose every evening Preferred Language: Welsh Communication Ability: Effective Software Architect Required: No Beliefs That Will Affect Care: None Current Living Situation: Spouse current occupational status: retired Feels Safe at Home: Hesitant to Answer Safety Concerns: Feels Safe At This Time Assistive Devices: Contacts Assistive Devices Comment: right eye contact lens Exam (Neuro) Physical Exam: HEENT: normocephalic grossly Neuro: Mental: AOx4, fluent speech, normal comprehension, no apraxia, no L/R confusion, no neglect. logical thought process. very good historian. at times very anxious and she had to slow down to talk but with normal speech. CN: PERRL, Full EOM, symmetric face, midline T/U/P, grossly full ROM neck Motor: No abnormal movements, normal tone, 5/5 t/o bilaterally Coord: intact FNT b/l Impression: 68 yo female with now resolved speech disturbance. mri brain negative. Her speech change does not appears to be organic in nature. she does not have aphasia. she admits she feels her anxiety/stress makes her symptoms worse. Her polypharmacy with marijuana smoking daily with alcohol intake daily likely also contributing. Recommendations: -may consider psychiatry for her symptom s, will defer this to hospitalist decision. no further work up needed from neurology at this point. may consider speech path to help coping with her speech changes reassured pt. she is convinced she has "adrenal insufficiency" and it is the cause for her speech issue. will defer this to hospitalist to address. consider cutting back on smoking marijuana and stop drinking daily. call again if new question. Chart reviewed I have spent more than 50% educating patient about potential diagnosis and neurological evaluation and coordinating care with patient's treatment team. Total time spent (including chart review and coordination of care): 60 min (this includes chart review). Results & Data Vital Signs (Past 12 Hours) Vital Signs Temp Pulse Pulse Resp BP BP Pulse Ox 09/28/23 08:48 65 09/28/23 07:40 36.7 C 59 L 16 127/73 98 09/28/23 03:27 37.1 C 59 L 14 105/66 97 09/27/23 23:01 36.7 C 66 18 94/57 L 96 O2 Del Method 09/28/23 08:48 09/28/23 07:40 Room Air 09/28/23 03:27 Room Air 09/27/23 23:01 Room Air PG Care Time/CCT Total # of Minutes Spent Total Time Spent with Patient: Total time spent is greater than 50% in coordination of care (as documented) at patient's floor/unit and/or counseling patient: Coding Level of Care Code 58103 IN/OBS CONSULT LVL 4,60M Diagnoses Speech disturbance, unspecified type R47.9 Speech disturbance type: unspecified speech disturbance (1) Speech disturbance Speech disturbance type: unspecified speech disturbance Qualified Code(s): R47.9 - Unspecified speech disturbances
[2023-09-28] MEDS: GADOBUTROL 30ML VIAL IV ONE (12:53)
--- NOTE | 2023-09-28 16:10 | Magnetic Resonance Report ---
MRI OF THE CERVICAL SPINE COMBO CLINICAL HISTORY: Chronic neck pain. COMPARISON STUDY: CT of the cervical spine dated 09/22/2023. MRI of the cervical spine dated 12/19/2020 . TECHNIQUE: MRI of the cervical spine is performed utilizing various T1 and T2-weighted sequences in t he axial and sagittal planes. Contrast-enhanced sequences are acquired following the IV administratio n of 4.4 cc of Gadavist. The examination is compromised by motion artifact. There is also susceptibil ity artifact from extensive metallic spinal hardware. FINDINGS: Cervical spine: Vertebral body height is maintained throughout the cervical spine. There is straighte mechelle of the cervical lordosis. Extensive postlaminectomy change is seen throughout the cervicothoraci c spine. This extends from C3 to T3. Interpedicular screws are in place at all levels with the except ion of C7. There is 4 mm of anterolisthesis at C7-T1. Alignment is otherwise preserved. There is near -complete bony fusion between the bodies of C3 and C7. The atlantodens articulation is maintained not ing productive degenerative change. No destructive bony lesion is seen. Degenerative endplate scleros is is noted in the upper thoracic region, greatest at T3-T4 where there is endplate edema. Intervertebral discs: There has likely been discectomy at C4-C5, C5-C6, and C6-C7. There is severe lo ss of the disc space at C3-C4 and C7-T1. Spinal cord: The cervical cord is normal in morphology and signal intensity. No abnormal postcontrast enhancement is identified. C2-C3: The central canal is clear. Uncovertebral and facet arthropathy contribute to moderate right n eural foraminal stenosis. The left neural foramen appears patent. C3-C4: The central canal appears clear. Uncovertebral and facet arthropathy contribute to mild bilate ral neural foraminal narrowing. C4-C5: The central canal and neural foramina appear clear. C5-C6: The central canal and neural foramina appear clear. C6-C7: Central canal appears clear. Osteophyte formation contributes to mild bilateral neural foramin al narrowing. C7-T1: The central canal and neural foramina are grossly clear. Upper thoracic spine. The central canal is clear at T1-T2 and T2-T3. There is a large posterior disc bulge at T3-T4 seen on the sagittal image #12. This contributes to at least mild central canal stenos is and effaces the ventral cord. These levels are only seen on the sagittal sequences. Soft tissues: The prevertebral and paraspinous soft tissues are normal as imaged. Brain parenchyma: The imaged brain parenchyma at the skull base is normal as imaged. IMPRESSION: 1. No acute bony abnormality is seen involving the cervical spine. 2. Spondylotic and extensive postsurgical change as above with no significant acquired compromise of the central canal throughout the cervical spine. See discussion for detailed level by level analysis. 3. Degenerative disc disease at T3-T4 with severe endplate edema at this level. 4. A posterior disc bulge at T3-T4 causes at least mild central canal stenosis and mildly effaces the ventral cord. Dictated: 09/28/2023 2:32 PM Transcribed: 09/28/2023 3:17 PM Ignacio [id number] [email or web address] Electronically signed by: Wale Ramsey M.D. 09/28/2023 4:09 PM
--- NOTE | 2023-09-28 19:20 | Hospitalist Progress Note ---
Date of Service September 28, 2023 Assessment & Plan (1) Abnormal cortisol level: Plan: AM cortisol level today is 1.3 She just completed 4 days of 60mg/day of prednisone starting late last week and ending on Tuesday A review of her record shows she received epidural steroid injections by pain management in June, August and again in September will discuss with CHLOE Mejia if she indeed has adrenal insufficiency as a result of exogenous steroid use some of her symptoms certainly fit with secondary adrenal insufficiency, but other symptoms don't (diplopia, aphasia, etc) the latter symptoms suggest decreased brain perfusion vs TIA vs other brain disturbance see below re: neuro symptoms (2) Expressive aphasia: Plan: MRI brain negative for acute findings recent CTA head/neck largely normal except for left vertebral artery stenosis She is orthostatic on orthostatic checks today, but this shouldn't cause aphasia she does report posterior neck/headache pain and has h/o migraine headache ?vertebralbasilar migraine leading to her neuro symptoms? will send message to neurology asking about this possibility TIA events leading to speech disturbance? other etiology? thus far speech has been normal during the hospitalization (3) Neck pain: Plan: Acute on chronic worsening of her bilateral neck pain Patient does follow with pain management clinic Continue gabapentin and trazodone Tramadol as needed Cervical spine MRI w/ and w/o contrast without acute findings T3-T4 severe endplate edema noted has received T3/T4 interlaminar epidural steroid injection in August by pain management sed rate and crp are very normal making discitis highly unlikely I don't see anything on neck MRI that would account for her presentation (4) Fusion of spine of cervical region: Plan: Fusion of C3-T3 4 years ago (5) Orthostatic hypotension: Plan: s/p IV fluid bolus today with improved parameters repeat orthos again in am 2nd to #1 ?? (6) Hypothyroidism: Plan: TSH wnl cont synthroid (7) Diplopia: Plan: etiology?? extraocular muscle movements on exam today wnl no diplopia today MRI brain negative check B1 level - r/o thiamine def/Wernicke's appreciate neurology consult/eval Plan VTE PPx: Lovenox 40mg SQ q24h appreciate PT/OT evals Admission and Anticipated Discharge Date Admission Date: September 27, 2023 Subjective patient's main complaints include posterior occipital pain/headache, neck pain at junction of neck/head, weakness (even at rest), "perspiring" / sweats (she talks about fight or flight syndrome) appetite has been off as of late symptoms are improved with sitting down; worse with standing recent diplopia/visual changes are better recent ataxia/balance issues are better does admit to daily etoh use, but only drinks 2 glasses wine/day - nothing more no h/o etoh withdrawal denies paresthesias of arms or legs speech has improved recent cognitive issues are improved (she has them when she has the headache/neck pain & the dizziness) tele overnight wnl Review of Systems Review of Systems: gen - no fevers or chills cv - no chest pain, although she said with IV fluids today she had discomfort in the high epigastric area? pulm - no dyspnea; no cough GI - no vomiting Physical Exam Physical Exam: gen - very thin, NAD, laying in bed comfortably; speech fluent/clear, intact memory eyes - PERRL; EOMI; no nystagmus neck - no JVD mouth - MMM heart - RRR, s1 s2, no murmur lungs - CTA b/l abd - soft NT ND BS+ ext - no edema, pulses 2+ b/l neuro - strength 5/5 x 4 exts; DTRs mildly brisk but symmetric b/l; no facial droop psych - a/o x 3; speech wnl - no aphasia Results & Data Results & Data Vital Signs (Past 12 Hours) Vital Signs Temp Pulse Pulse Resp BP Pulse Ox Pulse Ox 09/28/23 18:40 96 09/28/23 15:18 77 09/28/23 14:49 37.2 C 81 16 132/73 96 09/28/23 10:12 85 167/79 H 09/28/23 10:10 96 H 121/79 09/28/23 10:09 97 H 136/89 09/28/23 08:48 65 09/28/23 07:40 36.7 C 59 L 16 127/73 98 O2 Del Method O2 Del Method 09/28/23 18:40 Room Air 09/28/23 15:18 09/28/23 14:49 Room Air 09/28/23 10:12 09/28/23 10:10 09/28/23 10:09 09/28/23 08:48 09/28/23 07:40 Room Air Laboratory Results Laboratory Results - last 24 hr 09/28/23 07:00 WBC 7.06 RBC 4.33 Hgb 13.7 Hct 40.2 MCV 92.8 MCH 31.6 MCHC 34.1 RDW Std Deviation 46.5 H RDW Coeff of Kush 13.7 Plt Count 336 MPV 9.5 Immature Gran % (Auto) 0.3 Neut % (Auto) 54.7 Lymph % (Auto) 33.3 [place] % (Auto) 8.6 Eos % (Auto) 2.3 Baso % (Auto) 0.8 Neut # (Auto) 3.86 Lymph # (Auto) 2.35 [place] # (Auto) 0.61 H Eos # (Auto) 0.16 Baso # (Auto) 0.06 Immature Gran # (Auto) 0.02 Sodium 136 Potassium 3.9 Chloride 99 Carbon Dioxide 30 Anion Gap 7 BUN 20 Creatinine 0.62 Est Cr Clr Drug Dosing 59.3 Est GFR ( Amer) 105.9 Est GFR (Non-Af Amer) 91.4 BUN/Creatinine Ratio 32.3 H Glucose 94 Calcium 9.3 Magnesium 2.3 Cortisol AM Sample 1.33 L PG Care Time/CCT Total # of Minutes Spent Total Time Spent with Patient: Total time spent is greater than 50% in coordination of care (as documented) at patient's floor/unit and/or counseling patient: Coding Level of Care Code 90202 SUB INP/OBS CARE 3/50MIN Diagnoses Abnormal cortisol level R79.89 Expressive aphasia R47.01 Neck pain M54.2 Fusion of spine of cervical region M43.22 Orthostatic hypotension I95.1 Hypothyroidism E03.9 Diplopia H53.2
[2023-09-29 06:25] LABS: Basophils # (auto) 0.06 K/uL (0.00-0.20); Basophils % (auto) 0.9 %; Eosinophils # (auto) 0.18 K/uL (0.00-0.50); Eosinophils % (auto) 2.7 %; Hemoglobin 13.2 g/dl (12.0-16.0); Immature Granulocytes # (auto) 0.02 K/uL (0.01-0.20); Immature Granulocytes % (auto) 0.3 %; Lymphocytes # (auto) 2.27 K/uL (1.20-3.40); Lymphocytes % (auto) 34.7 %; Mean Corpuscular Hemoglobin 31.3 pg (25.0-34.0); Mean Corpuscular Hgb Conc 33.8 g/dL (32.0-36.0); Mean Corpuscular Volume 92.4 fL (80.0-100.0); Mean Platelet Volume 9.5 fL (9.4-12.4); Monocytes # (auto) 0.52 K/uL (0.11-0.59); Monocytes % (auto) 7.9 %; Neutrophils % (auto) 53.5 %; Platelet Count 328 K/uL (130-400); RDW Coefficient of Variation 13.6 % (11.5-14.5); RDW Standard Deviation 45.8 fL (36.4-46.3); Red Blood Count 4.22 M/uL (4.20-5.40); White Blood Count 6.55 K/ul (4.8-10.8)
[2023-09-29 06:30] LABS: BUN Creatinine Ratio 24.6 (10-20); Calcium 9.2 mg/dl (8.6-10.3); Creatinine Clr Calc Pharmacy 53.9 ml/min; Est GFR (African American) 102.2 ml/min; Est GFR (Non-African American) 88.2 ml/min; Potassium 4.2 mmol/L (3.5-5.1)
--- NOTE | 2023-09-29 09:48 | XCELERA ---
[id number]
[2023-09-29] MEDS ORDERED: HYDROCORTISONE SOD SUCCINATE 100 MG/2 ML VIAL IV STA (09:59)
[2023-09-29] MEDS: THIAMINE HCL 500 MG in SODIUM CHLORIDE 0.9% 50 ML IV STA (10:38)
[2023-09-29] MEDS: HYDROCORTISONE SOD 50 MG in SYRINGE 0 ML IV ONE (12:26)
--- NOTE | 2023-09-29 18:29 | Hospitalist Progress Note ---
Date of Service September 29, 2023 Assessment & Plan (1) Adrenal insufficiency: Plan: cortisol on 09/27 was 1.33 cortisol today 1.6 She had just completed 4 days of 60mg/day of prednisone late last week and ending this past Tuesday More importantly, though, she had epidural corticosteroid injections by pain management in June, August, and September 2023 I discussed her case with 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 Endo post-d/c (2) Abnormal cortisol level: Plan: see above in #1 many of her symptoms certainly fit with secondary adrenal insufficiency, but other symptoms don't (diplopia, aphasia, etc) the latter symptoms suggest decreased brain perfusion vs TIA vs other brain disturbance MRI brain this admission with considerable atrophy but no stroke to account for the above neuro symptoms see below re: neuro symptoms (3) Expressive aphasia: Plan: MRI brain negative for acute findings recent CTA head/neck largely normal except for left vertebral artery stenosis She is orthostatic on orthostatic checks today, but this shouldn't cause aphasia she does report posterior neck/headache pain and has h/o migraine headache ?vertebralbasilar migraine leading to her neuro symptoms? I corresponded with neurology but vertebralbasilar migraine not suspected TIA events leading to speech disturbance? other etiology? speech has been completely normal during the hospitalization plan to send to neurology post-discharge for some of her neuro symptoms (4) Neck pain: Plan: Acute on chronic worsening of her bilateral neck pain Patient does follow with pain management clinic Continue gabapentin and trazodone Tramadol as needed Cervical spine MRI w/ and w/o contrast without acute findings T3-T4 severe endplate edema noted has received T3/T4 interlaminar epidural steroid injection in August by pain management sed rate and crp are very normal making discitis highly unlikely I don't see anything on neck MRI that would account for her presentation (dizziness, aphasia, diplopia, other symptoms) neck pain improved already with improvement in BP and steroid therapy (5) 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 extraocular muscle movements on exam wnl no diplopia at any point this admission MRI brain negative check B1 level - r/o thiamine def/Wernicke's appreciate neurology consult/eval etiology of this issue uncertain plan to send to neurology post-discharge; also advised full eye evaluation by ophthalmology she follows with [facility] (9) Underweight: Plan: BMI 16.5 Plan VTE PPx: Lovenox 40mg SQ q24h appreciate PT/OT evals - cleared to return home at d/c if doing well tomorrow and orthostasis resolved can d/c home on PO hydrocortisone Admission and Anticipated Discharge Date Admission Date: September 29, 2023 Subjective patient reports feeling better after receiving IV hydrocortisone this am less dizziness with the hydrocortisone her cognitive issues are still there but not as severe orthostatic BPs this am - all low (90s systolic) eating improved as the day went on no diplopia no neuro symptoms is relieved we have a diagnosis and that this can be treated Review of Systems Review of Systems: gen - no fevers or chills cv - no chest pain, no orthopnea pulm - no BRENNAN GI - no abd pain Physical Exam Physical Exam: gen - very thin, NAD, laying in bed comfortably, looks better today neck - no JVD mouth - MMM heart - RRR, s1 s2, no murmur lungs - CTA b/l abd - soft NT ND BS+ ext - no edema, pulses 2+ b/l psych - a/o x 3; speech clear/fluent Results & Data Results & Data Vital Signs (Past 12 Hours) Vital Signs Temp Pulse Pulse Resp BP Pulse Ox O2 Del Method 09/29/23 15:25 36.7 C 81 18 148/95 H 97 Room Air 09/29/23 10:45 37.1 C 74 18 117/74 98 Room Air 09/29/23 09:10 66 09/29/23 07:27 36.7 C 68 16 106/66 94 Room Air Laboratory Results Laboratory Results - last 24 hr 09/29/23 05:35 WBC 6.55 RBC 4.22 Hgb 13.2 Hct 39.0 MCV 92.4 MCH 31.3 MCHC 33.8 RDW Std Deviation 45.8 RDW Coeff of Kush 13.6 Plt Count 328 MPV 9.5 Immature Gran % (Auto) 0.3 Neut % (Auto) 53.5 Lymph % (Auto) 34.7 [place] % (Auto) 7.9 Eos % (Auto) 2.7 Baso % (Auto) 0.9 Neut # (Auto) 3.50 Lymph # (Auto) 2.27 [place] # (Auto) 0.52 Eos # (Auto) 0.18 Baso # (Auto) 0.06 Immature Gran # (Auto) 0.02 Sodium 139 Potassium 4.2 Chloride 104 Carbon Dioxide 30 Anion Gap 5 BUN 17 Creatinine 0.69 Est Cr Clr Drug Dosing 53.9 Est GFR ( Amer) 102.2 Est GFR (Non-Af Amer) 88.2 BUN/Creatinine Ratio 24.6 H Glucose 101 H Calcium 9.2 Vitamin B1 Pending Vitamin B12 919 H Random Cortisol 1.60 ACTH Pending PG Care Time/CCT Total # of Minutes Spent Total Time Spent with Patient: Total time spent is greater than 50% in coordination of care (as documented) at patient's floor/unit and/or counseling patient: Coding Level of Care Code 39305 SUB INP/OBS CARE 2/35MIN Diagnoses Adrenal insufficiency E27.40 Abnormal cortisol level R79.89 Expressive aphasia R47.01 Neck pain M54.2 Fusion of spine of cervical region M43.22 Orthostatic hypotension I95.1 Hypothyroidism E03.9 Diplopia H53.2 Underweight R63.6
[2023-09-29] MEDS: HYDROCORTISONE SOD 50 MG in SYRINGE 0 ML IV SCH (20:38)
[2023-09-29] MEDS: THIAMINE HCL 100 MG TAB PO SCH (20:38)
--- NOTE | 2023-10-12 07:16 | Discharge Summary ---
Date of Service date of admission - September 27, 2023 date of discharge - September 30, 2023 Admission HPI Per Admitting Provider Everett Samuel is a pleasant 68-year-old female with PMH of cervical spine fusion, migraines, hypothyroidism, HTN, GERD, gastroparesis, depression, lumbar radiculopathy, and peptic ulcer disease. She presented on 09/26 for worsening neck pain and expressive aphasia that began last week. Patient went to the ED on 09/21 and was given steroids, which she reports helped significantly. She was then discharged on a 4-day course of oral prednisone, which she reported helped significantly. She has also been drinking more fluids to stay hydrated. However her symptoms, which she describes as neurological, have returned. She reports that whenever she stands up vertically for more than 10 minutes, she has "increased pressure" at the base of her skull and she is unable to do any critical thinking or executive processing. When she lays down, this slowly resolves. She is also having significant neck pain with any sort of twisting motion. She denies any recent trauma or injuries to the head or neck. She has been wearing a cervical spine collar at home due to this significant pain. The pain in her neck is bilateral, and she describes it as an interm ittent, dull, pressure-like pain; she rates it 5/10 at present, and 7/10 at worst. She has not been taking any pain medicine at home with it. Worse with movements. No radiation to the shoulders. No pain in the ears. She does have a history of a C3 to T3 spinal infusion 4 years ago, but she has never had problems like this before. She also notes a history of migraines, but these were away after menopause. She has been having pain behind her eyes and visual disturbances that accompany standing. She describes it as an "inability to track properly" with her eyes. No loss of vision, double vision, or blurry vision. She denies any PMH of stroke or strokelike symptoms such as slurred speech, unilateral deficits, or facial droop. No history of seizures, MS, PMR, or giant arteritis to her knowledge. She does have history of vertigo once a long time ago, but she is denying any recent dizziness. She took all regular morning medications today; no recent change in medications besides the steroid taper. Patient is currently on acyclovir for history of lip sores. She did have a tick bite on her lower leg 2 to 3 weeks ago. She does endorse medical marijuana use, and alcohol use (2 to 3 glasses of wine every evening, but she quit last after her symptoms worsened). Patient is hypertensive 167/90 at time of admission; vitals otherwise stable. ROS: Patient endorses thermoregulatory problems (cold/heat intolerance), bilateral neck pain, QUINTANILLA, vision changes when standing (difficulty tracking), ringing in ears two weeks ago (resolved), expressive aphasia, dry cough, nausea (which patient attributes to steroids), and intermittent cold and tingling arms and fingers. Patient denies fever, chills, night-sweats, dizziness/lightheadedness with standing (but notes she feels like she might "collapse" from pressure in her head), loss of vision, pain in ears, facial droop, slurred speech, unilateral deficits, chest pain, SOB, abdominal pain, vomiting, diarrhea, saddle anes thesia, change in urinary/bowel habits, or burning with urination. Specialty Data Hospitalist Discharge Exam: gen - NAD, looks good neck - no JVD mouth - MMM heart - RRR, s1 s2, no murmur lungs - CTA b/l abd - soft NT ND BS+ ext - no edema, pulses 2+ b/l neuro - motor strength 5/5 x 4 exts; gait intact; speech clear & fluent Discharge Data Consultations [facility] Neu[facility] PT, OT Procedures Performed Chest X-Ray 09/27/23 12:35 XR chest 1V portable CLINICAL HISTORY: weakness TECHNIQUE: Single frontal radiograph of the chest was obtained. Comparison: Comparison is made to chest radiograph 09/22/2023 FINDINGS: No lines and tubes are seen. The cardiomediastinal silhouette is normal. The lungs are clear. No evidence of pleural effusion or pneumothorax. IMPRESSION: No acute chest disease. ACT 112: Negative or not required by law. Electronically signed by: Reinaldo Morales M.D. 09/27/2023 1:[address] 09/27/23 12:35 CT SCAN OF THE BRAIN WITHOUT IV CONTRAST CLINICAL HISTORY: Aphasia COMPARISON STUDY: CT of the brain dated 09/22/2023. TECHNIQUE: Unenhanced axial CT scan of the brain is performed from the vertex to the skull base. A dose lowering technique was utilized adhering to the principles of ALARA. CT DOSE: 547.75 mGy.cm FINDINGS: Brain parenchyma: There is age-related involutional change noting mild to moderate subcortical and periventricular microangiopathic disease. There is no hemorrhage, mass effect, or evidence of acute territorial ischemia by CT criteria. Bradley-white matter differentiation is preserved. No extra-axial fluid collection is seen. Ventricles, sulci, cisterns: Prominent secondary to involutional change. Intracranial vasculature: There is atherosclerotic calcification of the cavernous carotid and vertebral arteries. Calvarium: Unremarkable. Sinuses and mastoids: The visualized paranasal sinuses are clear. The mastoid air cells are well pneumatized. Orbits: The bony orbits are grossly intact. There are bilateral ocular lens implants. IMPRESSION: There is no hemorrhage, mass effect, or evidence of acute territorial ischemia by CT criteria. ACT 112: Negative or not required by law. Electronically signed by: Wale Ramsey M.D. 09/27/2023 1:46 PM Brain MRI 09/27/23 14:43 MR brain wo/w con CLINICAL HISTORY: expressive aphasia TECHNIQUE: Multiplanar and multisequence MR images of the brain were obtained prior to and following administration of gadolinium contrast. Comparison: Comparison is made to CT head 09/27/2023 FINDINGS: No abnormal restricted diffusion is identified. Foci of T2 and FLAIR hyperintensity are noted in the paraventricular areas consistent with chronic small vessel ischemic disease. Ex vacuo ventriculomegaly and sulcal enlargement is noted compatible with diffuse volume loss. No mass or abnormal enhancement is seen. There is no mass effect or midline shift. There is no evidence of acute intraparenchymal hemorrhage. No extra axial fluid collections are seen. The corpus callosum, pituitary gland, and cerebellar tonsils appear grossly unremarkable. Flow voids of the major intracranial arterial vessels are identified. The imaged portions of the paranasal sinuses, mastoid air cells, and orbits are unremarkable. IMPRESSION: No acute abnormality and in particular no evidence of acute infarct. ACT 112: Negative or not required by law. Electronically signed by: Reinaldo Morales M.D. 09/27/2023 5:17 PM Cervical Spine MRI 09/28/23 10:01 MRI OF THE CERVICAL SPINE COMBO CLINICAL HISTORY: Chronic neck pain. COMPARISON STUDY: CT of the cervical spine dated 09/22/2023. MRI of the cervical spine dated 12/19/2020. TECHNIQUE: MRI of the cervical spine is performed utilizing various T1 and T2- weighted sequences in the axial and sagittal planes. Contrast-enhanced sequences are acquired following the IV administration of 4.4 cc of Gadavist. The examination is compromised by motion artifact. There is also susceptibility artifact from extensive metallic spinal hardware. FINDINGS: Cervical spine: Vertebral body height is maintained throughout the cervical spine. There is straightening of the cervical lordosis. Extensive postlaminectomy change is seen throughout the cervicothoracic spine. This extends from C3 to T3. Interpedicular screws are in place at all levels with the exception of C7. There is 4 mm of anterolisthesis at C7-T1. Alignment is otherwise preserved. There is near-complete bony fusion between the bodies of C3 and C7. The atlantodens articulation is maintained noting productive degenerative change. No destructive bony lesion is seen. Degenerative endplate sclerosis is noted in the upper thoracic region, greatest at T3-T4 where there is endplate edema. Intervertebral discs: There has likely been discectomy at C4-C5, C5-C6, and C6- C7. There is severe loss of the disc space at C3-C4 and C7-T1. Spinal cord: The cervical cord is normal in morphology and signal intensity. No abnormal postcontrast enhancement is identified. C2-C3: The central canal is clear. Uncovertebral and facet arthropathy contribu te to moderate right neural foraminal stenosis. The left neural foramen appears patent. C3-C4: The central canal appears clear. Uncovertebral and facet arthropathy contribute to mild bilateral neural foraminal narrowing. C4-C5: The central canal and neural foramina appear clear. C5-C6: The central canal and neural foramina appear clear. C6-C7: Central canal appears clear. Osteophyte formation contributes to mild bilateral neural foraminal narrowing. C7-T1: The central canal and neural foramina are grossly clear. Upper thoracic spine. The central canal is clear at T1-T2 and T2-T3. There is a large posterior disc bulge at T3-T4 seen on the sagittal image #12. This contributes to at least mild central canal stenosis and effaces the ventral cord. These levels are only seen on the sagittal sequences. Soft tissues: The prevertebral and paraspinous soft tissues are normal as imaged. Brain parenchyma: The imaged brain parenchyma at the skull base is normal as imaged. IMPRESSION: 1. No acute bony abnormality is seen involving the cervical spine. 2. Spondylotic and extensive postsurgical change as above with no significant acquired compromise of the central canal throughout the cervical spine. See discussion for detailed level by level analysis. 3. Degenerative disc disease at T3-T4 with severe endplate edema at this level. 4. A posterior disc bulge at T3-T4 causes at least mild central canal stenosis and mildly effaces the ventral cord. Dictated: 09/28/2023 2:32 PM Transcribed: 09/28/2023 3:17 PM Ignacio [id number] [email or web address] Electronically signed by: Wale Ramsey M.D. 09/28/2023 4:09 PM Echocardiogram - EF 55-60%, no PFO, normal valve function Hospital Course (1) Adrenal insufficiency: cortisol on 09/28/23 was 1.33 cortisol on 09/29/23 was 1.6 both of these were AM samples She had just completed 4 days of 60mg/day of prednisone the week prior to admission More importantly, though, she had epidural corticosteroid injections by pain management in June, August, and September 2023 I discussed her case with [facility] Endocrinology and her clinical picture was c/w adrenal insufficiency as a result of adrenal gland suppression from recurrent exogenous steroid exposure This would be c/w secondary adrenal insufficiency, not Kendall's, and therefore mineralcorticoid (florinef) is not needed ACTH level was dispatched and was pending at time of discharge started IV hydrocortisone 50mg q8h while hospitalized she reported improvement in her dizziness and overall well-being just after 2 doses of steroids orthostatic BPs had normalized by day of discharge with IV fluids and stress- dose steroids at discharge she will complete a several day taper of hydrocortisone and ultimately land on the following - * hydrocortisone 15mg qam * hydrocortisone 5mg qafternoon will send to [facility] Endocrinology post-d/c for management (2) Abnormal cortisol level: see above in #1 many of her symptoms certainly fit with secondary adrenal insufficiency, but other symptoms don't (diplopia, aphasia, etc) the latter symptoms suggest decreased brain perfusion vs TIA vs other brain disturbance MRI brain this admission with considerable atrophy but no stroke to account for the above neuro symptoms see below re: neuro symptoms (3) Expressive aphasia: MRI brain negative for acute findings recent CTA head/neck largely normal except for left vertebral artery stenosis but this should not cause her symptoms She was orthostatic due to the adrenal insufficiency but this shouldn't cause aphasia she does report posterior neck/headache pain and has h/o migraine headache ?vertebralbasilar migraine leading to her neuro symptoms? She was seen by [facility] neurology but vertebralbasilar migraine was not suspected TIA events leading to speech disturbance? other etiology? speech was completely normal during the hospitalization plan to send to [facility] neurology post-discharge to address this issue (4) Neck pain: Acute on chronic worsening of her bilateral neck pain Patient does follow with pain management clinic Continue gabapentin and trazodone Tramadol as needed Cervical spine MRI w/ and w/o contrast without acute findings T3-T4 severe endplate edema noted had received T3/T4 interlaminar epidural steroid injection in August by pain management Sed rate and crp were very normal (3 and <0.5, respectively) making discitis highly unlikely There was nothing on cervical spine MRI that would account for her presentation (dizziness, aphasia, diplopia, other symptoms) Her neck pain did improve modestly with hydrocortisone steroid therapy (5) Fusion of spine of cervical region: Fusion of C3-T3 4 years prior (6) Orthostatic hypotension: 2nd to #1 resolved with IV fluids & stress dose IV steroids this was the cause of her recurrent dizziness (7) Hypothyroidism: TSH wnl cont synthroid (8) Diplopia: etiology?? extraocular muscle movements on exam wnl no diplopia at any point this admission MRI brain negative checked B1 level - r/o thiamine def/Wernicke's -- level pending at discharge etiology of this issue was uncertain plan to send to neurology post-discharge; also advised full eye evaluation by ophthalmology she follows with [facility] (9) Underweight: BMI 16.5 Plan seen by PT/OT - cleared to return home at d/c Discharge Instructions time spent on discharge activities including preparation of discharge instructions, prescriptions, etc - 60 minutes see scanned "discharge instructions" for further information Coding Level of Care Code 36958 INP/OBS DISCH >30 MIN Diagnoses Adrenal insufficiency E27.40 Abnormal cortisol level R79.89 Expressive aphasia R47.01 Neck pain M54.2 Fusion of spine of cervical region M43.22 Orthostatic hypotension I95.1 Hypothyroidism E03.9 Diplopia H53.2 Underweight R63.6
== END 2023-09-30 14:15 | disposition home or self-care (01) | DRG 645 ==
LOC: ED 12:11 → 4W 12:11 → SUATTDRO 16:16 → 4W 17:50 → 3N 09-29 18:39
DX: G43.909 Migraine, unspecified, not intractable, without status migrainosus; E03.9 Hypothyroidism, unspecified; I95.1 Orthostatic hypotension; F43.9 Reaction to severe stress, unspecified; R00.1 Bradycardia, unspecified; E27.49 Other adrenocortical insufficiency; F10.90 Alcohol use, unspecified, uncomplicated; Z98.1 Arthrodesis status; F41.9 Anxiety disorder, unspecified; R26.9 Unspecified abnormalities of gait and mobility; Z88.0 Allergy status to penicillin; E27.8 Other specified disorders of adrenal gland; H53.2 Diplopia; R47.89 Other speech disturbances; M54.2 Cervicalgia; Z79.890 Hormone replacement therapy; Z88.5 Allergy status to narcotic agent; M54.16 Radiculopathy, lumbar region